=== PATIENT | male | born 1940 | race Caucasian/White ===

== ENCOUNTER 2017-08-07 10:59 | Emergency (ER) | payer MEDICARE, OTHER, SELFPAY ==
[2017-08-07 11:00] VITALS: BP 128/68; PULSE 95; RESP 20; TEMP 36.8; O2SAT 96; BMI 24.4
[2017-08-07 11:46] LABS: UTC Influenza A Antigen Negative (Negative); UTC Influenza B Antigen Negative (Negative); UTC Strep Screen (Rapid) Negative (Negative)
--- NOTE | 2017-08-07 12:25 | HMH.EDUTC ---
[facility] [place]ression: Upper respiratory virus Disposition: Home, Self-Care Condition on Discharge: Good Instructions: DI for Viral Upper Respiratory Infection -- Adult Additional Instructions: Pt did not stay for discharge instructions Referrals: Bello Lewis [Primary Care Provider] - (for persisting, new or worsening symptoms.) Time of Disposition: 12:30 Medical Decision Making - Jose Inquiry Pt receiving controlled substance: No Vital Signs: 08/07/17 11:00 Temperature 98.3 F Temperature Source Oral Pulse Rate [Left Radial] 95 H Respiratory Rate 20 Blood Pressure [Right Arm] 128/68 Blood Pressure Mean [Right Arm] 88 Blood Pressure Source [Right Arm] Automatic Cuff Blood Pressure Position [Right Arm] Supine 02 Sat by Pulse Oximetry 96 Oxygen Delivery Method Room Air - Lab Data Lab results reviewed: Yes: I reviewed the patient's lab results. Lab Results 08/07/17 11:31: Influenza Type A Ag Negative, Influenza Type B Ag Negative, Strep Scn Rapid Clinic Negative Orders (Tests/Meds): ORDERS Category Date Time Status Strep Screen Confirmation Stat Micro 08/07/17 11:31 Received - Reevaluation(s) Time: 12:25 Reevaluation #1: Discussed dx and POC. Pt immediately became more agitated. Screaming and demanding penicillin injection and penicillin tablets!! . Attempted to discuss dx and treatment options to help him feel better but refusing to listen to any other options. Oh hell. That won't do anything. You have done nothing but wasted my time. Tried to discuss risks associated w/ unwarranted antibiotics I am 77 years old. I know my body. you are young and know nothing. You sure do have a lot to learn! pt screamed as he walked out of clinic refusing to be treated otherwise for symptoms, refusing to finish discharge, refusing to sign any paperwork. [facility] [place] - General Stated complaint: sinus infection Time Seen by Provider: 08/07/17 12:25 Mode of Arrival: Ambulatory Source of Information: Patient Limitations: No Limitations Description of Symptoms (Recalled from Triage Doc. by RN): sinus pressure, fevers, sore throat HEENT Symptoms (Recalled from RN notes): Yes (sinus pressure, sore throat) Resp Symptoms (Recalled from RN notes): No Skin Symptoms (Recalled from RN notes): No MS Symptoms (Recalled from RN notes): No Functional Status (Recalled from RN notes): na - History of Present Illness Provider Complaint: c/o I have a sinus infection . Rhinorrhea, susan ear pressure and scratchy throat starting last night. No symptoms prior to last night. Denies a hx of allergies. No fever. Hasn't taken or tried anything for symptoms because there is nothing other than a penicillin injection that will help this . PCP in [place] and out of the office for the week. Around a group of others over the weekend w/ cough, sneezing, runny nose and knows that is where he got it from. - Related Data Home Medications Medication Instructions Recorded Confirmed Atenolol [Atenolol 25mg Tab] 25 mg PO DAILY 08/07/17 08/07/17 Atorvastatin Calcium [Lipitor 40mg 40 mg PO DAILY 08/07/17 08/07/17 Tablet] hydroCHLOROthiazide [HCTZ 25mg 25 mg PO DAILY 08/07/17 08/07/17 tab] Allergies Allergy/AdvReac Type Severity Reaction Status Date / Time erythromycin base Allergy Unknown Unverified 05/15/17 15:31 [ERYTHROMYCIN BASE] - Worker's Comp Is this a Worker's Comp case?: No Is this an [facility] Worker's Comp?: No Is this a [facility] Worker's Comp?: No [facility] History I have reviewed the patient's past medical history: Yes Medical History: Reports:: Coronary Artery Disease, Hypertension Denies:: Cancer, Diabetes Mellitus Type 1, Diabetes Mellitus Type 2, Hyperlipidemia, MRSA Other Surgeries: Yes: Angioplasty Amputation: No Fractures: No - Social History Educational Level: Completed High School Alcohol Intake: never - Psychiatric History Expresses thoughts of harming
[2017-08-07 12:31] VITALS: BP 128/62; PULSE 72; RESP 18; TEMP 36.8
--- NOTE | 2017-08-07 12:35 | ED_ITS ---
[facility] [place] Clinical Impression: Upper respiratory virus Disposition: Home, Self-Care Condition on Discharge: Good Instructions: DI for Viral Upper Respiratory Infection -- Adult Additional Instructions: Pt did not stay for discharge instructions Referrals: Bello Lewis [Primary Care Provider] - (for persisting, new or worsening symptoms.) Time of Disposition: 12:30 Medical Decision Making - Jose Inquiry Pt receiving controlled substance: No Vital Signs: 08/07/17 11:00 Temperature 98.3 F Temperature Source Oral Pulse Rate [Left Radial] 95 H Respiratory Rate 20 Blood Pressure [Right Arm] 128/68 Blood Pressure Mean [Right Arm] 88 Blood Pressure Source [Right Arm] Automatic Cuff Blood Pressure Position [Right Arm] Supine 02 Sat by Pulse Oximetry 96 Oxygen Delivery Method Room Air - Lab Data Lab results reviewed: Yes: I reviewed the patient's lab results. Lab Results 08/07/17 11:31: Influenza Type A Ag Negative, Influenza Type B Ag Negative, Strep Scn Rapid Clinic Negative Orders (Tests/Meds): ORDERS Category Date Time Status Strep Screen Confirmation Stat Micro 08/07/17 11:31 Received - Reevaluation(s) Time: 12:25 Reevaluation #1: Discussed dx and POC. Pt immediately became more agitated. Screaming and demanding penicillin injection and penicillin tablets!! . Attempted to discuss dx and treatment options to help him feel better but refusing to listen to any other options. Oh hell. That won't do anything. You have done nothing but wasted my time. Tried to discuss risks associated w/ unwarranted antibiotics I am 77 years old. I know my body. you are young and know nothing. You sure do have a lot to learn! pt screamed as he walked out of clinic refusing to be treated otherwise for symptoms, refusing to finish discharge, refusing to sign any paperwork. [facility] [place] HPI - General Stated complaint: sinus infection Time Seen by Provider: 08/07/17 12:25 Mode of Arrival: Ambulatory Source of Information: Patient Limitations: No Limitations Description of Symptoms (Recalled from Triage Doc. by RN): sinus pressure, fevers, sore throat HEENT Symptoms (Recalled from RN notes): Yes (sinus pressure, sore throat) Resp Symptoms (Recalled from RN notes): No Skin Symptoms (Recalled from RN notes): No MS Symptoms (Recalled from RN notes): No Functional Status (Recalled from RN notes): na - History of Present Illness Provider Complaint: c/o I have a sinus infection . Rhinorrhea, susan ear pressure and scratchy throat starting last night. No symptoms prior to last night. Denies a hx of allergies. No fever. Hasn't taken or tried anything for symptoms because there is nothing other than a penicillin injection that will help this . PCP in [place] and out of the office for the week. Around a group of others over the weekend w/ cough, sneezing, runny nose and knows that is where he got it from. - Related Data Home Medications Medication Instructions Recorded Confirmed Atenolol [Atenolol 25mg Tab] 25 mg PO DAILY 08/07/17 08/07/17 Atorvastatin Calcium [Lipitor 40mg 40 mg PO DAILY 08/07/17 08/07/17 Tablet] hydroCHLOROthiazide [HCTZ 25mg 25 mg PO DAILY 08/07/17 08/07/17 tab] Allergies Allergy/AdvReac Type Severity Reaction Status Date / Time erythromycin base Allergy Unknown Unv
[2017-08-07 12:46] VITALS: BP 128/62; PULSE 72; RESP 18; TEMP 36.8; O2SAT 96
== END 2017-08-07 12:30 | disposition left against medical advice (07) ==
PROVIDERS: Emergency Provider Nurse Practitioner Family; Family Provider Family Medicine; PCP Family Medicine
DX: J06.9 Acute upper respiratory infection, unspecified (principal); I25.10 Atherosclerotic heart disease of native coronary artery without angina pectoris; I10 Essential (primary) hypertension; Z88.1 Allergy status to other antibiotic agents
CPT/HCPCS: G0463; 87804; 87880; 99202

== ENCOUNTER 2020-11-16 16:08 | Emergency (ER) | payer MEDICARE, MEDICAID, SELFPAY ==
[2020-11-16 16:10] VITALS: BP 155/53; PULSE 61; RESP 20; TEMP 36.9; O2SAT 95; BMI 22.8
--- NOTE | 2020-11-16 16:34 | HMH.EDUTC ---
[facility] [place] Clinical Impression: Sinusitis Qualifiers: Sinusitis location: unspecified location Chronicity: unspecified Qualified Code(s): J32.9 - Chronic sinusitis, unspecified Otitis media Qualifiers: Otitis media type: unspecified Laterality: left Qualified Code(s): H66.92 - Otitis media, unspecified, left ear Disposition: Home, Self-Care Condition on Discharge: Good Instructions: Sinusitis, Middle Ear Infection, DI for Sinusitis, Amoxicillin and Clavulanic Acid Additional Instructions: *Monitor Temp, Over the counter Motrin or Tylenol as directed/as needed Tylenol every 4 hours and Motrin every 6 hours (as long as your family doctor has told you that you can take it) for fever or pain. and straight to ER if unable to lower temp less than 101.0 after medication given *Warm salt water gargles may help to soothe the throat *Throat Lozenges *Warm fluids like tea with honey may help to soothe the throat *Sleep elevated *Humidifier/Vaporizer *Take medication as prescribed Follow up with your Family Doctor if no improvement Follow up IMMEDIATELY for new or worsening symptoms or no Noticeable improvement over the next 48-72 hours. 911 for difficulty breathing or swallowing Prescriptions: Amoxicillin/Potassium Clav [Augmentin 875-125 Tablet] 1 tab PO Q12H 10 Days #20 tab Transmission Status: Pending to [id number] Referrals: Lazaro Almanzar DO [Primary Care Provider] - As needed Time of Disposition: 16:53 Medical Decision Making - Jose Inquiry Pt receiving controlled substance: No Jose was queried for this patient: No Vital Signs: 11/16/20 16:10 Temperature 98.4 F Temperature Source Oral Pulse Rate [Right Brachial] 61 Respiratory Rate 20 Blood Pressure [Right Arm] 155/53 H Blood Pressure Mean [Right Arm] 87 Blood Pressure Source [Right Arm] Automatic Cuff Blood Pressure Position [Right Arm] Sitting 02 Sat by Pulse Oximetry 95 Oxygen Delivery Method Room Air Medical Decision Narrative: Patient has taken augmentin in the past without reactions or complications [facility] [place] - General Stated complaint: sINUS INFECTION, sORE THROAT,COUGH, eARS, GLANDS Time Seen by Provider: 11/16/20 16:34 Mode of Arrival: Ambulatory Source of Information: Patient Limitations: No Limitations Description of Symptoms (Recalled from Triage Doc. by RN): PATIENT C/O SORE THROAT, SINUS PRESSURE AND DRAINAGE, SWOLLEN/SORE GLANDS, AND LEFT EAR PAIN HEENT Symptoms (Recalled from RN notes): Yes Resp Symptoms (Recalled from RN notes): No Skin Symptoms (Recalled from RN notes): No MS Symptoms (Recalled from RN notes): No Functional Status (Recalled from RN notes): WNL - History of Present Illness Provider Complaint: Patient state that he has been having pain in his left ear, sinus pain and pressure, swollen glands and sore scratchy throat State that he gets a bad sinus infection about once a year and has been having issues with ear infections State that he has been feeling bad for over a week so he came in to get medication before it got too bad - Related Data Home Medications Medication Instructions Recorded Confirmed Atorvastatin Calcium [Lipitor 40mg 40 mg PO DAILY 08/07/17 11/16/20 Tablet] atenoloL [Atenolol 25mg Tab] 25 mg PO DAILY 08/07/17 11/16/20 lisinopriL [Lisinopril] 10 mg PO DAILY 11/16/20 11/16/20 Previous Rx's Medication Instructions Recorded Amoxicillin/Potassium Clav 1 tab PO Q12H 10 Days #20 tab 11/16/20 [Augmentin 875-125 Tablet] Allergies Allergy/AdvReac Type Severity Reaction Status Date / Time erythromycin base Allergy Unknown Unverified 05/15/17 15:31 [ERYTHROMYCIN BASE] - Worker's Comp Is this a Worker's Comp case?: No H History - Hepatitis A Screen Drug use history?: No High risk sexual behaviors?: No History of sexually transmitted infection?: No Currently employed?: No Childcare worker?: No Do you have indoor plumbing?: Yes Do you have
[2020-11-16 16:58] VITALS: BP 155/53; PULSE 61; RESP 20; TEMP 36.9; O2SAT 95
== END 2020-11-16 17:01 | disposition home or self-care (01) ==
PROVIDERS: Emergency Provider Nurse Practitioner; PCP Family Medicine
DX: H66.92 Otitis media, unspecified, left ear (principal); J32.9 Chronic sinusitis, unspecified
CPT/HCPCS: 99202; G0463

== ENCOUNTER 2021-01-06 18:23 | Emergency (ER) | payer MEDICARE, MEDICAID, SELFPAY ==
--- NOTE | 2021-01-06 18:52 | PC.NURSE ---
Pt came to the window loudly asking how long will it be before he gets his covid test. Informed pt that it might be a while due to the pt number. PT wanted his paper work to be shred and stated he was going to the board [facility] health in the morning due to this. Did ask pt asked and shred his paperwork.
[2021-01-06 19:09] VITALS: BP 0/0; PULSE 0; RESP 0; TEMP -17.7; TEMP 0; O2SAT 0
== END 2021-01-06 19:09 | disposition left against medical advice (07) ==
LOC: UTC 18:32
PROVIDERS: Emergency Provider Nurse Practitioner; PCP Family Medicine
DX: Z53.21 Procedure and treatment not carried out due to patient leaving prior to being seen by health care provider (principal)

== ENCOUNTER → 2021-11-21 08:29 | Outpatient (CLI) | payer MEDICARE, MEDICAID, SELFPAY | PROVIDERS: Visit Provider Ophthalmology | DX: Z01.812 Encounter for preprocedural laboratory examination (principal); Z20.822 Contact with and (suspected) exposure to COVID-19; H02.9 Unspecified disorder of eyelid | CPT/HCPCS: C9803; U0003; U0005 ==

== ENCOUNTER 2023-07-01 16:48 | Emergency (ER) | payer MEDICARE, MEDICAID, SELFPAY ==
[2023-07-01 16:57] VITALS: BP 163/81; PULSE 82; RESP 18; TEMP 37; O2SAT 98; BMI 21.7
--- NOTE | 2023-07-01 17:04 | HMH.EDGENADL ---
Discharge Plan Disposition Patient Disposition: Home, Self-Care Prescriptions Prescriptions: New azithromycin [Zithromax Z-Drew] 250 mg tablet 250 mg PO DAILY 4 Days Qty: 4 0RF Rx Instructions: start on day 2 of therapy amoxicillin-pot clavulanate 875-125 mg tablet 1 tab PO BID Qty: 14 0RF No Action atorvastatin 40 MG tablet 40 mg PO DAILY atenolol 25 MG tablet 25 mg PO DAILY lisinopril 10 MG tablet 10 mg PO DAILY amoxicillin-pot clavulanate 1 EACH tablet 1 tab PO Q12H 10 Days Qty: 20 0RF Referrals Follow up/Referrals: Taty Starr, EMT [Primary Care Provider] - See instructions Activity Restrictions/Add. Instructions Additional Instructions/Restrictions: At this time it was felt you are safe to be discharged home. If new or worsening symptoms please do not hesitate to return the emergency department. Please take antibiotics as prescribed and follow-up with your family doctor within 72 hours. Do not apply topical antibiotic cream, especially Neosporin as this can worsen the irritation of your skin. Clinical Impressions Clinical Impression: Erysipelas, Cat scratch Instructions Patient Instructions: Animal Bites Discharge ED Provider: Darien Barrios General Adult HPI General Chief complaint: Animal Bite Stated complaint: Right Rash from cat scratch Time Seen by Provider: 07/01/23 16:50 Mode of Arrival: Ambulatory Source of Information: Patient Limitations: No Limitations Description of Symptoms (Recalled from ER Triage Doc. by RN): got scratched and bitten by a stray cat History of Present Illness HPI narrative: Patient is a 83-year-old male with no pertinent past medical history presents emergency department for evaluation of a cat scratch. Patient had a cat scratch and bite on his right upper extremity dorsal aspect of his forearm and wrist approximately 4 days ago with progressive erythema causing him to present here for continued evaluation. This has been refractory to [id number] cream at home. Last Tdap up-to-date within the last 5 years. No other complaints at this time. Related Data Home Medications Medication Instructions Recorded Confirmed atenolol 25 mg tablet 25 mg PO DAILY Heart disease 08/07/17 11/16/20 atorvastatin 40 mg tablet 40 mg PO DAILY Cholesterol 08/07/17 11/16/20 lisinopril 10 mg tablet 10 mg PO DAILY Hypertension 11/16/20 11/16/20 Previous Rx's Medication Instructions Recorded amoxicillin 875 mg-potassium 1 tab PO Q12H 10 days #20 tabs 11/16/20 clavulanate 125 mg tablet amoxicillin 875 mg-potassium 1 tab PO BID #14 tabs 07/01/23 clavulanate 125 mg tablet azithromycin 250 mg tablet 250 mg PO DAILY cat scratch 4 days 07/01/23 (Zithromax Z-Drew) #4 tabs Allergies Allergy/AdvReac Type Severity Reaction Status Date / Time erythromycin base Allergy Unknown Verified 07/01/23 17:03 [ERYTHROMYCIN BASE] [facility] Disclaimer: The information contained in this section may have been updated after the patient was seen, as this information can be updated by other users. Social History Smoking Status: Never smoker second hand exposure: No alcohol intake: never current occupational status: other Travel in the last 8 weeks: None ROS Obtained: Yes Systems reviewed as appropriate & no additional complaints except as documented Physical Exam General General appearance: alert and in no apparent distress Head Head exam: atraumatic and normocephalic Eye Eye exam: Present PERRL ENT ENT exam: Present mucous membranes moist Neck Neck exam: Present normal inspection Chest Chest inspection: Present normal inspection and symmetric chest wall rise Respiratory Respiratory exam: Absent respiratory distress Cardiovascular Cardiovascular exam: Present regular rate and normal rhythm Extremities Exam Extremities exam: Present other (Punctate wound over the dorsal aspect of the right wrist that is scabbed over. Broad area of cellulitis over the dorsal aspect of the right forearm. Sensation intact light touch distally right upper extremity, palpable 2+ right radial pulse, no circumferential erythema or tense edema.) Neurological Exam Neurological exam: Present alert Psychiatric Psychiatric exam: Present normal affect Skin Skin exam: Present warm and dry Medical Decision Making Jose Inquiry Pt receiving controlled substance: No Vital Signs: 07/01/23 16:57 Temperature 98.6 F Temperature Source Oral Pulse Rate [Left Radial] 82 Respiratory Rate 18 Blood Pressure [Left Arm] 163/81 H Blood Pressure Mean [Left Arm] 108 02 Sat by Pulse Oximetry 98 Oxygen Delivery Method Room Air Orders (Tests/Meds): ED MEDICATIONS Generic Name Dose Route Start Last Admin Trade Name Freq PRN Reason Stop Dose Admin Azithromycin 500 mg 07/01/23 17:00 Azithromycin 250mg Tablet PO 07/01/23 17:01 ONCE ONE Trimethoprim/Sulfamethoxazole 1 each 07/01/23 17:00 Sulfa/Trimethoprim 1 Tablet PO 07/01/23 17:01 ONCE ONE Medical Decision Narrative: In summary patient is a 83-year-old male with past medical history described above presents emergency department for evaluation of erythema in the setting of cat scratch and cat bite. Patient is hemodynamically stable nontoxic-appearing upon arrival, afebrile. Patient does not have lymphadenitis in his right upper extremity suggestive of true cat scratch disease. However given that patient has been bitten and scratched will be covered empirically with Augmentin and azithromycin. First dose will be administered here. Tdap is up-to-date. Patient is appropriate for discharge at this time we will follow-up with PCP on outpatient basis will be discharged with a course of antibiotics and was given return precautions. Critical Care Critical Care Time Critical Care Time: No
[2023-07-01] MEDS: AZITHROMYCIN 250MG TABLET 500 MG PO (17:17)
[2023-07-01] MEDS: AMOXICILLIN/CLAVULANATE POTASSIUM 875/125MG TABLET 1 EACH PO (17:17)
[2023-07-01 17:39] VITALS: BP 134/74; PULSE 69; RESP 18; TEMP 37.1; O2SAT 96
== END 2023-07-01 17:40 | disposition home or self-care (01) ==
PROVIDERS: Emergency Provider Emergency Medicine
DX: A46 Erysipelas (principal); W55.03XA Scratched by cat, initial encounter; W55.01XA Bitten by cat, initial encounter
CPT/HCPCS: 99283

== ENCOUNTER 2024-04-30 10:17 | Emergency (ER) | payer MEDICARE, MEDICAID, SELFPAY ==
[2024-04-30 10:30] VITALS: BP 134/80; PULSE 94; O2SAT 96
[2024-04-30 10:31] VITALS: BP 147/81; PULSE 98; RESP 18; TEMP 36.6; O2SAT 98; BMI 22.4
--- NOTE | 2024-04-30 11:15 | XR_ITS ---
FINAL REPORT CLINICAL HISTORY: cough, fever FINDINGS: CHEST 2 VIEWS PA AND LATERAL The heart is normal in size. The mediastinum is unremarkable. There is mild right base opacity, may represent atelectasis or pneumonia. There is no pneumothorax. IMPRESSION: Right base atelectasis versus pneumonia. Reviewed, Interpreted and Dictated by Nii Chowdhury III, MD Transcribed by Marlen Stringer Authenticated and [facility]
--- NOTE | 2024-04-30 11:32 | ED_ITS ---
Discharge Plan Disposition Patient Disposition: Home, Self-Care Prescriptions Prescriptions: New azithromycin 250 mg tablet See Rx Instructions .ROUTE .COMPLEX Qty: 6 0RF Rx Instructions: For 250 mg dose pack: take 500 mg today (day 1), then 250 mg for 4 days (days 2-5) amoxicillin-pot clavulanate 875-125 mg tablet 1 tab PO BID 10 Days Qty: 20 0RF No Action azithromycin [Zithromax Z-Drew] 250 mg tablet 250 mg PO DAILY 4 Days Qty: 4 0RF Rx Instructions: start on day 2 of therapy amoxicillin-pot clavulanate 875-125 mg tablet 1 tab PO BID Qty: 14 0RF atorvastatin 40 MG tablet 40 mg PO DAILY atenolol 25 MG tablet 25 mg PO DAILY lisinopril 10 MG tablet 10 mg PO DAILY amoxicillin-pot clavulanate 1 EACH tablet 1 tab PO Q12H 10 Days Qty: 20 0RF Referrals Follow up/Referrals: Lazaro Almanzar DO [Primary Care Provider] - See instructions Activity Restrictions/Add. Instructions Additional Instructions/Restrictions: No evidence of a focal consolidation/pneumonia however with your bronchitis and your respiratory symptoms in the setting of fever and your age and comorbidities we are erring on the side of treating you for a bacterial infection. You recently had Augmentin and azithromycin treating you for a cat scratch and tolerated these medications well. You have a documented erythromycin allergy but did not have any reaction to azithromycin which has been prescribed. Please return with any significant worsening of your symptoms. Clinical Impressions Clinical Impression: Bronchitis Print Language Print Language: Belarusian Discharge ED Provider: Krys Sen General Adult HPI General Chief complaint: Upper Respiratory Infection Stated complaint: cough, sinus infection, chest congestion Time Seen by Provider: 04/30/24 10:55 Mode of Arrival: Ambulatory Source of Information: Patient Limitations: No Limitations Description of Symptoms (Recalled from ER Triage Doc. by RN): pt states he thinks he has walking PNA. pt reports for over a week he has been sick. pt reports sinus congestion, bilateral eye pain, bilateral ear aches and a productive cough with white sputum. pt states he took 2 ASA this am that relieved the pain in his eyes which is now a 0/10. pt reports he needs an antibiotic called in to [facility] History of Present Illness HPI narrative: Patient is an 83-year-old male who presents today with a chief complaint of once you give me my antibiotics I will be better. States for the last week he has had sinus drainage states my nose has been running like a sugar tree. Also states has had a significant cough with some sputum production and fevers at home that been subjective for tactile in nature he has been taking antipyretics with improvement in those symptoms. Patient recently had prescription of Augmentin and azithromycin in the past for cat scratch fever and tolerated both of those medications well despite a documented history of erythro mycin. Related Data Home Medications ?Medication ?Instructions ?Recorded ?Confirmed atenolol 25 mg tablet 25 mg PO DAILY Heart disease 08/07/17 11/16/20 atorvastatin 40 mg tablet 40 mg PO DAILY Cholesterol 08/07/17 11/16/20 lisinopril 10 mg tablet 10 mg PO DAILY Hypertension 11/16/20 11/16/20 Previous Rx's ?Medication ?Instructions ?Recorded amoxicillin 875 mg-potassium 1 tab PO Q12H 10 days #20 tabs 11/16/20 clavulanate 125 mg tablet amoxicillin 875 mg-potassium 1 tab PO BID #14 tabs 07/01/23 clavulanate 125 mg tablet azithromycin 250 mg tablet 250 mg PO DAILY cat scratch 4 days 07/01/23 (Zithromax Z-Drew) #4 tabs amoxicillin 875 mg-potassium 1 tab PO BID 10 days #20 tabs 04/30/24 clavulanate 125 mg tablet azithromycin 250 mg tablet See Rx Instructions PO .COMPLEX #6 04/30/24 tabs Allergies Allergy/AdvReac Type Severity Reaction Status Date / Time erythromycin base Allergy Unknown Hives Verified 04/30/24 10:42 (ERYTHROMYCIN BASE) [facility] Disclaimer: The information contained in this section may have been updated after the patient was seen, as this information can be updated by other users. Social History Smoking Status: Former smoker second hand exposure: No alcohol intake: never current occupational status: other Travel in the last 8 weeks: None ROS Obtained: Yes All systems reviewed & no additional complaints except as documented Physical Exam General General appearance: alert Respiratory Respiratory exam: Present normal lung sounds bilaterally; Absent respiratory distress Cardiovascular Cardiovascular exam: Present regular rate and normal rhythm Neurological Exam Neurological exam: Present alert and oriented X3 Medical Decision Making Medical Records Screening: Per USPSTF and CDC recommendations, given the prevalence of disease in our region, it is our hospital?s policy to screen for HIV and viral Hepatitis for all patients aged 18 and over and those with ongoing risk factors. Jose Inquiry Pt receiving controlled substance: No Vital Signs: 04/30/24 10:30 04/30/24 10:31 Temperature 98 F Temperature Source Oral Pulse Rate 94 H Pulse Rate [Left] 98 H Respiratory Rate 18 Blood Pressure 134/80 Blood Pressure [Right Arm] 147/81 H Blood Pressure Mean [Right Arm] 103 Blood Pressure Source [Right Arm] Automatic Cuff Blood Pressure Position [Right Arm] Sitting 02 Sat by Pulse Oximetry 96 98 Oxygen Delivery Method Room Air Orders (Tests/Meds): ORDERS Category Date Time Status Chest XR 2 view (NOT portable) [XR chest 2V] Stat Exams 04/30/24 11:15 Taken Medical Decision Narrative: 83-year-old with respiratory infectious symptoms and fever at home. Typically this situation I would work the patient up for sepsis and other viral etiologies as the patient could be bacteremic etc. However the patient denied any blood work and states he just wanted antibiotics. I was able to convince him to get a chest x-ray that was a 2 view and I personally interpreted this and I do not see any dense consolidation however with his age and fever and lack of be able to get any additional workup we will err on the side of giving bacterial treatment with Augmentin and azithromycin. Again he had these medications in the past to treat cat scratch without any allergic side effects. Patient was prescribed these medications return precautions emphasized he was very well on appearance and will return with any worsening symptoms. Critical Care Critical Care Time Critical Care Time: No
[2024-04-30 11:35] VITALS: BP 148/79; PULSE 97; RESP 16; TEMP 36.6; O2SAT 99
== END 2024-04-30 11:36 | disposition home or self-care (01) ==
PROVIDERS: Emergency Provider Student in an Organized Health Care Education/Training Program; PCP Family Medicine
DX: J40 Bronchitis, not specified as acute or chronic (principal); R09.81 Nasal congestion; H57.13 Ocular pain, bilateral; H92.03 Otalgia, bilateral; R05.9 Cough, unspecified; R50.9 Fever, unspecified
CPT/HCPCS: 71046; 99283

== ENCOUNTER 2024-10-09 19:18 | Emergency (ER) | payer MEDICARE, MEDICAID, SELFPAY ==
[2024-10-09 19:50] VITALS: BP 158/77; PULSE 79; RESP 16; TEMP 36.6; O2SAT 100; BMI 22.4
--- OUTSIDE RECORDS SUMMARY | 2024-10-09 20:14 | XMS_ITS | Continuity of Care Document ---
Author Organization [facility] Address [address] [place] [address] Care Team Providers Care Manager Revenue Name Role Phone ST AKBAR MYRA Primary Care Provider MIRTA HARDEN Orthopedic Surgeon [phone] TERRI BARILLAS Urologist Assessment Encounter Date Assessment Date Assessment LastModified by Organization Details LastModified Time 09/24/2024 09/24/2024 f/u in february as scheduled [email or web address] Not available 09/24/2024 15:06:13 Plan of Treatment Reminders Order Date Submit Date Provider Last Modified By Organization Details Last Modified Time Details Appointments RECHECK 2024 08:25A M SE CHAVEZ MD Not available Not available Not available MEDICARE WELLNESS VISIT 2024 08:30A M MYRA STAFFORD DO Not available Not available Not available DERMATOLO GY VISIT 2024 10:30A M WENDIE BOWSER DO Not available Not available Not available Lab culture, bacterial 2024 025 [facility], [address] [place] [address], [id number], 09/25/2024 10:18:34 Referral None recorded. Procedures None recorded. Surgeries None recorded. Imaging None recorded. Medication Orders None recorded. Patient TargetsNo targets recorded. Patient Instructions Encounter Date Encounter Id Patient Instructions Last Modified By Organization Details Last Modified Time 09/24/2024 [id number] If any lesions change, or if any other new or symptomatic lesions occur, patient understands to return to the clinic for further evaluation Discussed sun precautions; SPF 30+ [email or web address] Not available 09/24/2024 08:02:42 Reason for Referral None Reported. Problems Name Problem SNOMED Code Status Onset Date Resolution Date Notes Provider Name and Address Organization Details Recorded Time Epiphora 279531632 Active 2015 From Automate d Load;Pro vider: Samantha Valadez;Sta tus: Active Not Available [facility] 7 02:39:05 Bilatera l age-rela pat nuclear cataract s 70564424039 9100 Active 2015 From Automate d Load;Pro vider: Samantha Valadez;Sta tus: Active Not Available [facility] 7 07:09:49 Ptosis of eyelid 02881329 Active 2015 From Automate d Load;Pro vider: Samantha Valadez;Sta tus: Active Not Available [facility] 7 08:22:55 Heart disease 47479581 Active 2018 [place] - 1994 BELLO LEWIS MD [address] [place] [address], [phone] , [facility] 9 10:22:22 Type 2 diabetes mellitus without complica tion 764867389 Active 2018 MYRAROSALES STAFFODR, DO [address] [place] [address], [phone] , [facility] 9 22:06:46 Benign essentia l hyperten ananda 4681824 Active 2018 MYRAROSALES STAFFORD, DO [address] [place] [address], [address] , [facility] 9 22:20:24 Adult health examinat ion Active 2019 DON'T DELETE FROM PROBLEM [place] [address] [place] [address], [phone] , [facility] 0 09:10:04 Left bundle branch block 31128805 Active 2019 MYRAROSALES STAFFORD, DO [address] [place], [address] , [facility] 0 09:12:53 Active or passive immuniza tion Active 2021 [facility] 2 10:41:27 Muscle weakness 26385585 Active 2021 SAMANTHA HYATT II, PT, DPT [address] [place] [address], [phone] , [facility] 2 09:05:28 Cervical spondylo sis 328621199 Active 2021 SAMANTHA HYATT II, PT, DPT [address] [place] [address], [address] , [facility] 2 09:05:28 Spasm 07778592 Active 2021 SAMANTHA HYATT II, PT, DPT [address] [place] [address], [address] [place] [address] , [facility] 2 09:05:29 Pulmonar y embolism 45208895 Active 2022 ERIKA TORRES MD [address] [place] [address], [address] , [facility] 3 14:28:35 Pulmonar y emphysem a 86928136 Active 2022 ERIKA TORRES MD [address] [place] [address], [phone] [place] [address] 3 14:28:37 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 86643437758 9100 Active 2022 ERIKA TORRES MD [address] [place] [address], [address] , [facility] 3 14:28:39 Mitral valve regurgit ation 71963282 Active 2022 ERIKA TORRES MD [address] [place] [address], [address] , [facility] 3 14:28:40 Atherosc lerosis of aorta 23626499 Active Not Available [facility] 3 08:08:23 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 663189765 Active Not Available [facility] 4 08:36:37 Coronary atherosc lerosis 623190452 Active Not Available [facility] 4 08:36:43 Multiple nodules of lung 064066975 Active 2023 CECE DURANT MD [address] [place], [address] , [facility] 4 08:22:16 Allergic rhinitis 94001977 Active 2014 From Automate d Load;Pro vider: Gretel Lewister;S tatus: Active Not Available [facility] 6 05:51:00 Hyperten sive disorder 60788756 Completed 201501/16/2019 From Automate d Load;Pro vider: Bello Lewis;S tatus: Active [facility], [address] [place] [address], [phone] , [facility] 9 22:20:21 Hyperlip idemia 47830751 Active 2015 [facility], [address] [place] [address], [id number] [place] [address] 0 09:11:56 Acute bronchit is 83613531 Completed 201404/02/2017 From Automate d Load;Pro vider: Bello Lewis;S tatus: Active Juayn Adkins [facility] 7 10:54:45 Problem Notes None recorded. Procedures Surgical History Date Name Laterality Status Provider Name and Address Organization Details Recorded Time 09/25/19 25 Destruction Premalignant Lesion(s) completed [facility] 09/24/2024 15:05:40 09/16/19 25 Destruction Premalignant Lesion(s) completed Diana Kate [facility] 09/15/2024 10:41:11 04/29/20 24 Destruction Premalignant Lesion(s) completed [facility] 04/29/2024 09:14:42 03/11/20 24 Destruction Premalignant Lesion(s) completed Olivia Nguyen [facility] 03/11/2024 14:37:43 03/11/20 24 Diffusion Capacity completed Betina Ceja [facility] 03/11/2024 10:59:50 03/11/20 24 Spirometry completed Betina Brenna [facility] 03/11/2024 10:59:31 03/11/20 24 Pulmonary Function Testing completed CECE DURANT MD [address] [place], [address], [facility] 03/11/2024 11:23:39 01/03/20 24 Destruction Premalignant Lesion(s) completed Caryn Alcantara [facility] 01/03/2024 10:24:21 12/27/19 24 Suture/Staple removal completed Riya Samayoa [facility] 12/27/2023 11:25:13 10/16/19 24 Biopsy Skin Lesion; Tangential completed Olivia Nguyen [facility] 10/16/2023 09:48:18 07/25/19 24 Biopsy Skin Lesion; Punch completed Olivia Nguyen [facility] 07/25/2023 10:55:02 01/17/20 23 Diabetic Foot Exam completed MYRA STAFFORD DO [address] [place], [address], [facility] 01/16/2023 08:26:08 01/17/20 23 PAF Exam completed Anson Pritchett [facility] 12/14/2022 09:25:11 11/28/19 23 Biopsy Skin Lesion; Tangential completed Amina Egan [facility] 11/27/2022 08:17:11 11/28/19 23 Destruction Premalignant Lesion(s) completed Amina Egan [facility] 11/27/2022 08:17:31 09/16/19 23 Stress Test - Nuclear Lexiscan completed ALL COLVIN MD [facility] [place], [address], [facility] 09/15/2022 16:32:21 06/12/19 23 Echocardiogram completed AVNI MEDLEY MD [address] [place] [address], [address], [facility] 06/13/2022 08:53:24 06/08/19 23 EKG completed ABNER BRODY, PATIENT FLOW COORDINATOR [address] [place], [address], [facility] 06/08/2022 15:34:33 06/02/19 23 EKG completed Quoc Calderon [facility] 06/02/2022 10:35:46 03/08/20 22 PT Manual Therapy completed SAMANTHA DE DIOST II, PT, DPT [address] [place], [address], [facility] 03/12/2022 19:01:10 03/08/20 22 PT Therapeutic Exercise completed SAMANTHA DE DIOST II, PT, DPT [address] [place], [address], [facility] 03/12/2022 19:00:57 02/23/20 22 PT Manual Therapy completed SAMANTHA DE DIOST II, PT, DPT [address] [place], [address], [facility] 02/22/2022 09:35:39 02/23/20 22 PT Therapeutic Exercise completed SAMANTHA DE DIOST II, PT, DPT [address] [place], [address], [facility] 02/22/2022 09:35:43 02/16/20 22 PT Manual Therapy completed SAMANTHA DE DIOST II, PT, DPT [address] [place], [address], [facility] 02/15/2022 09:07:16 02/16/20 22 PT Therapeutic Exercise completed SAMANTHA DE DIOST II, PT, DPT [address] [place], [address], [facility] 02/15/2022 09:06:53 02/09/20 22 PT Evaluation - Low Complexity completed SAMANTHA DE DIOST II, PT, DPT [address] [place], [address], [facility] 02/15/2022 08:58:35 02/09/20 22 PT Therapeutic Exercise completed SAMANTHA DE DIOST II, PT, DPT [address] [place], [address], [facility] 02/15/2022 08:58:51 07/08/19 19 PT Hot/Cold Pack completed AXEL HIGHTOWERS, PT [address] [place], [address], [facility] 07/08/2018 07:25:13 07/08/19 19 PT Iontophoresis completed AXEL HIGHTOWERS, PT [address] [place], [address], [facility] 07/08/2018 07:25:13 07/08/19 19 PT Manual Therapy completed AXEL HIGHTOWERS, PT [address] [place], [address], [facility] 07/08/2018 07:25:14 07/01/19 19 PT Hot/Cold Pack completed AXEL HIGHTOWERS, PT [address] [place], [address], [facility] 07/01/2018 07:54:53 07/01/19 19 PT Iontophoresis completed AXEL HIGHTOWERS, PT [address] [place], [address], [facility] 07/01/2018 07:55:00 07/01/19 19 PT Manual Therapy completed AXEL HIGHTOWERS, PT [address] [place], [address], [facility] 07/01/2018 07:26:46 06/28/19 19 PT Evaluation - Moderate Complexity completed AXEL HIGHTOWERS, PT [address] [place], [address], [facility] 06/28/2018 08:59:10 06/28/19 19 PT Therapeutic Exercise completed AXEL HOSKINS, PT [address] [place], [address], [facility] 06/28/2018 08:59:17 06/28/19 19 PT Ultrasound completed AXEL HIGHTOWERS, PT [address] [place], [address], [facility] 06/28/2018 09:38:07 12/10/20 18 Visual Field Extended [facility] 05/06/2018 10:43:07 05/06/20 18 Slit Lamp/External Photos completed [facility] 05/06/2018 10:43:13 Imaging Results None recorded. Procedure Notes None recorded. Medical Equipment None Reported. Allergies Allergen ID Allergen Name Allergen Category Reaction Reaction Severity Criticality Documentation Date Start Date Code Code System Note Provider Name and Address Organization Details Recorded Time 472533 erythromy emma medicatio n Not available Not available Not available 04/20/20162014 4053 RxNorm Comme nt: Creat ed By: Cathy stewart Date: 2014 1:04: 48 PM; Not Available [facility] 6 11:42:15 Medications Name Sig Start Date Stop Date Status Note LastModified by Organization Details LastModified Time Prescript ion - Renewal 05/08 completed Not Available Not Available Not Available Prescript ion - Prior Authoriza tion Request 11/26 completed Not Available Not Available Not Available atorvasta tin 40 mg tablet TAKE 1 TABLET BY MOUTH AT BEDTIME 2024 active Not Available Not Available Not Avai lable metformin 500 mg tablet Take 1 tablet by mouth twice daily 2023 active Not Available Not Available Not Avai lable betametha sone valerate 0.1 % topical ointment apply to the ear canals once a day for a week and then continue once or twice a month 10/31 completed Not Available Not Available Not Available carvedilo l 6.25 mg tablet Take 1 tablet twice a day by oral route. 08/17 completed bradycar pia Not Available Not Available Not Available doxycycli ne hyclate 100 mg capsule 1 po bid with food for 10 days, no dairy. No calcium or iron pills. 02/03 completed Not Available Not Available Not Available Toprol XL 25 mg tablet,ex tended release 1 po qd. Take in place of atenolol . 02/10 completed Not Available Not Available Not Available ketoconaz ole 2 % shampoo APPLY TO THE AFFECTED AREA(S), LATHER, LEAVE IN PLACE FOR 5 MINUTES, AND THEN RINSE OFF WITH WATER BY TOPICAL ROUTE DAILY 10/31 completed Not Available Not Available Not Available triamcino lone acetonide 0.5 % topical cream APPLY A THIN LAYER TO THE AFFECTED AREA(S) BY TOPICAL ROUTE 2 TIMES PER DAY 11/27 completed Not Available Not Available Not Available famotidin e 40 mg tablet TAKE 1 TABLET BY MOUTH ONCE DAILY WITH SUPPER 2023 active Not Available Not Available Not Avai lable Medrol (Drew) 4 mg tablets in a dose pack as directed 09/08 completed Not Available Not Available Not Available betametha sone, augmented 0.05 % topical cream Apply a thin layer to the affected areas of rash/itc nisha on the chest/ar ms/shoul ders 2-3 times a week, as needed. 04/29 completed Patient said cream is eating his skin up in layers. Patient stopped using 3 days ago. Not Available Not Available Not Available atenolol 25 mg tablet 1/2 tab daily 06/16 completed Not Available Not Available Not Available clobetaso l 0.05 % topical cream Apply a thin layer to the affected areas of rash/itc nisha on the chest/ar ms/shoul ders twice a day for up to 2 weeks, then twice a week, as needed. 09/02 completed Not Available Not Available Not Available Zyrtec 10 mg tablet Take 1 tablet every day by oral route. active Not Available Not Available No t Available Tamiflu 75 mg capsule One tablet twice a day for 5 days. 06/15 completed Not Available Not Available Not Available aspirin 81 mg tablet,de layed release Take 1 tablet every day by oral route. active Not Available Not Available No t Available tramadol 50 mg tablet Take 1 tablet every 6 hours by oral route. 01/15 completed Complete d Not Available Not Available Not Available triamcino lone acetonide 0.1 % topical cream APPLY A THIN LAYER TO THE AFFECTED AREA(S) BY TOPICAL ROUTE 2 TIMES PER DAY UP TO 2 WEEKS AT A TIME NEEDED FOR ITCHING 09/15 completed Not Available Not Available Not Available Nitroling ual 0.4 mg/SPRAY spray One spray sl prn CP. May repeat q5min X 2. 01/16 completed Instruct ions: Place one pill under the tongue as needed for chest pain, may repeat in 5 minutes if needed.; Frequenc y: prn;Medi cation Descript ion: nitrogly cerin; Dosage:1 ; Route:yeh blingual ; refills: 5; Quantity :25 spray Not Available Not Available Not Available Kenalog 40 mg/mL suspensio n for injection injected 1mL into L DG 06/15 completed Not Available Not Available Not Available oxycodone -acetamin ophen 5 mg-325 mg tablet Take 1 tablet every 6 hours by oral route as needed, for pain related to divertic ulitis. 09/19 completed Not Available Not Available Not Available Tessalon Perles 100 mg capsule Take 2 capsules 3 times a day by oral route as needed. 06/16 completed Not Available Not Available Not Available ferrous sulfate 325 mg (65 mg iron) tablet Take 1 tablet every day by oral route. 10/15 completed Not Available Not Available Not Available lisinopri l 10 mg tablet Take 1 tablet by mouth once daily 08/14 completed holding as of Not Available Not Available Not Available lidocaine 5 % topical patch Apply 1 patch every 12 hours by topical route as needed. 2023 active Not Available Not Available Not Avai lable nitroglyc nubia 0.4 mg sublingua l tablet DISSOLVE ONE TABLET UNDER THE TONGUE EVERY 5 MINUTES NEEDED FOR CHEST PAIN. DO NOT EXCEED A TOTAL OF 3 DOSES IN 15 MINUTES 2023 active Not Available Not Available Not Avai lable omeprazol e 20 mg capsule,d elayed release 01/16 completed Not Available Not Available Not Available monteluka st 10 mg tablet Take 1 tablet by mouth once daily 2023 active Not Available Not Available Not Avai lable hydrochlo rothiazid e 25 mg tablet TAKE ONE TABLET BY MOUTH ONCE DAILY 12/17 completed Not Available Not Available Not Available mupirocin 2 % topical ointment apply to the affect areas inside both nostrils twice daily for 10 days 2024 active Not Available Not Available Not Avai lable prednison e 5 mg tablets in a dose pack 6-day dosepack 5mg. 03/07 completed Not Available Not Available Not Available fluocinon davina 0.05 % topical solution APPLY TO THE AFFECTED AREAS OF SCALP 1-2 TIMES DAILY PRN ITCH 10/31 completed Not Available Not Available Not Available ipratropi um bromide 42 mcg (0.06 %) nasal spray USE 2 SPRAY(S) IN EACH NOSTRIL THREE TIMES DAILY NEEDED 06/08 completed Not Available Not Available Not Available ketoconaz ole 2 % topical cream APPLY TO THE AFFECTED AREA(S) BY TOPICAL ROUTE ONCE DAILY FOR 2 WEEKS PRN FLARES 01/15 completed Complete d. Not Available Not Available Not Available cefdinir 300 mg capsule Take 1 capsule every 12 hours by oral route for 10 days. 09/08 completed Not Available Not Available Not Available fluticaso ne propionat e 50 mcg/actua tion nasal spray,massimo pension 2 sprays in each nostril qAM. 2023 active Not Available Not Available Not Avai lable metformin ER 500 mg tablet,ex tended release 24 hr 1 tab daily x 1 week, then increase to 2 tabs daily. 09/15 completed Not Available Not Available Not Available doxycycli ne hyclate 100 mg tablet Take 1 tablet twice a day by oral route with meal(s) for 5 days. 01/15 completed Complete d Not Available Not Available Not Available naproxen 500 mg tablet TAKE 1 TABLET BY MOUTH TWICE DAILY WITH MEALS 04/19 completed Not Available Not Available Not Available amoxicill in 875 mg-potass ium clavulana te 125 mg tablet Take 1 tablet twice a day by oral route for 10 days. 09/15 completed Not Available Not Available Not Available Allergy Relief (loratadi ne) 10 mg tablet Take 1 tablet by mouth once daily 2023 active Not Available Not Available Not Avai lable Ciprodex 0.3 %-0.1 % ear drops,massimo pension INSTILL 4 DROPS INTO AFFECTED EAR(S) BY OTIC ROUTE 2 TIMES PER DAY FOR 7 DAYS 02/25 completed Not Available Not Available Not Available loratadin e 08/14 completed Not Available Not Available Not Available mometason e 0.1 % topical solution APPLY A FEW DROPS TO THE AFFECTED AREA(S) BY TOPICAL ROUTE ONCE DAILY for 14 days. 02/10 completed Not Available Not Available Not Available omeprazol e 20 mg tablet,de layed release 1 po qd. 02/10 completed Not Available Not Available Not Available Xarelto 10 mg tablet Take 1 tablet by mouth once daily 2024 active Not Available Not Available Not Avai lable Xarelto 03/18 completed Not Available Not Available Not Available Xarelto 20 mg tablet Take 1 tablet by mouth once daily 09/15 completed not taking Not Available Not Available Not Available Biofreeze (menthol) active PRN Not Available Not Available No t Available imdevimab ([id number]) 120 mg/mL intraveno us solution (2 of 2) (EUA) INJECT 600 mg x 1 02/25 completed Administ ered at [facility] Not Available Not Available Not Available casirivim ab ([id number]) 120 mg/mL intraveno us solution (1 of 2) (EUA) INJECT 600 mg x 1 02/25 completed administ ered at [facility] Not Available Not Available Not Available Vitals None Recorded Social History Question Answer Notes LastModified by Organizat ion Details LastModified Time Tobacco Smoking Status Former Smoker quit 1977 [facility] Alberto [facility] 08/17/2020 10:07:39 What Is Your Level Of Caffeine Consumption? Moderate Information not available 09/30/2024 How Much Tobacco Do You Chew? 2-4/day Information not available 03/20/2019 Which Illicit Or Recreational Drugs Have You Used? None Information not available 04/06/2017 What Is The Highest Grade Or Level Of School You Have Completed Or The Highest Degree You Have Received? TG05132-5 [email or web address] Information not available 09/30/2024 When Did You Quit Smoking? 16+yearssinc elastcigaret te [email or web address] Information not available 06/08/2022 Are There Any Guns Present In Your Home? Yes Information not available 11/27/2019 Hard Of Hearing Or Deaf In One Or Both Ears? No Information not available 11/27/2019 Legally Blind In One Or Both Eyes? No Information not available 11/27/2019 Marital Status Informatio n not available 05/17/2016 What Was The Date Of Your Most Recent Tobacco Screening? 01/17/2024 Information not available 01/17/2024 How Many Children Do You Have? 3 [email or web address] Information not available 03/20/2019 What Is Your Relationship Status? Information not available 02/25/2021 Do You Use Your Seat Belt Or Car Seat Routinely? Yes Information not available 03/14/2021 Are There Any Smokers In Your House? Yes Information not available 03/14/2021 How Much Tobacco Do You Smoke? No [email or web address] Information not available 05/09/2019 Has Tobacco Cessation Counseling Been Provided? Yes Information not available 09/06/2022 On What Date Was Tobacco Cessation Counseling Provided? 11/02/2023 Information not available 11/02/2023 How Many Years Have You Smoked Tobacco? 0 Information not available 03/12/2019 Have You Recently Traveled Abroad? No Information not available 02/25/2021 Sex: Male Functional Status Question Answer Note LastModified by Organizat ion Details LastModified Time Do you use any illicit or recreational drugs? No Information not available 02/25/2021 Do you or have you ever used any other forms of tobacco or nicotine? No Information not available 02/03/2021 What is your level of alcohol consumption? Occasional Information not available 05/17/2016 Do you or have you ever used smokeless tobacco? Currently chews tobacco [email or web address] Information not available 08/17/2020 Are you currently employed? No [email or web address] Information not available 09/30/2024 Are you able to care for yourself? Yes Information not available 11/27/2019 What is your occupation? Retired Information not available 05/17/2016 Do you or have you ever used e-cigarettes or vape? Never used electronic cigarettes Information not available 03/12/2019 Mental Status None recorded. Family History Relationship Description Onset Age of this Age Resolved Age Notes LastModified by Organization Details LastModified Time Mother Family history of malignant neoplasm breast Not available 2015 10:12:42 Sister Family history of malignant neoplasm Not available 2015 10:12:53 Paternal Grandmother Cataract [email or web address] Not available 02/2018 11:27:47 Medical History Condition Response Arthritis Y Cancer N Stroke N Blood Thinners Y High Cholesterol Y Liver Disease N Kidney Disease N Heart Conditions Y Heart Attack ([place]) N Diabetes Y Sleep Apnea N Included as Review of Systems N Heart Disease Y Hypertension Y Immunizations Vaccine Type Date Status Note Provider Name and Address Organization Details Recorded Time pneumococcal polysaccharide PPV23 03/30/20 16 completed [facility] 01/17/2024 10:02:29 pneumococcal, unspecified formulation 03/30/20 16 completed Nancy Garcia [facility] 05/08/2024 13:12:31 Influenza, high-dose, trivalent, PF 03/12/20 19 cancelled product out of stock Not Available [facility] 06/14/2019 02:52:57 COVID-19, mRNA, LNP-S, PF, 100 mcg/0.5mL dose or 50 mcg/0.25mL dose 06/30/19 21 completed [facility] 04/03/2022 16:34:10 COVID-19, mRNA, LNP-S, PF, 100 mcg/0.5mL dose or 50 mcg/0.25mL dose 07/30/19 21 completed [facility] 04/03/2022 16:34:11 COVID-19, mRNA, LNP-S, PF, 100 mcg/0.5mL dose or 50 mcg/0.25mL dose 02/03/20 21 completed [place] [facility] 16:34:10 Influenza, high-dose, trivalent, PF 01/17/20 24 completed [facility], [facility] [address] [place], [address], [facility] 01/17/2024 09:53:39 Pneumococcal conjugate PCV20, polysaccharide [id number] conjugate, adjuvant, PF 01/17/20 24 completed [facility], [facility] [address] [place], [address], [facility] 01/17/2024 09:53:39 Influenza, high-dose, trivalent, PF 04/08/20 19 completed [facility] 04/03/2022 16:34:10 pneumococcal polysaccharide PPV23 04/08/20 19 completed [facility] 04/03/2022 16:34:10 Influenza, high-dose, trivalent, PF 04/06/20 17 completed [facility] 04/03/2022 16:34:10 Influenza, high-dose, quadrivalent, PF 02/14/20 22 completed [facility] 04/03/2022 16:34:10 Influenza, high-dose, quadrivalent, PF 02/23/20 20 completed [facility] 04/03/2022 16:34:11 Influenza, high-dose, trivalent, PF 03/30/20 16 [facility] 16:34:11 Pneumococcal conjugate PCV 13 04/06/20 17 completed [facility] 04/03/[facility]22 16:34:11 COVID-19, mRNA, LNP-S, bivalent, PF, 50 mcg/0.5 mL or 25mcg/0.25 mL dose 02/14/20 22 completed [facility] 04/03/2022 16:34:11 Influenza, high-dose, trivalent, PF 04/01/20 18 completed [facility] 04/03/2022 16:34:11 Influenza, high-dose, quadrivalent, PF 03/14/20 completed [facility] 04/03/2022 16:34:11 Past Encounters Encounter ID Performer Location Encounter Start Date Encounter Closed Date Diagnosis/Indication Diagnosis SNOMED-CT Code Diagnosis ICD10 Code Diagnosis Note [id number] WENDIE BOWSER DO [facility] [address] [place] [address] 09/15/2024 09:47:19 09/15/2024 10:45:37 History of malignant basal cell neoplasm of skin 963127051 Z85.828 lower tip of nose ([facility]) Pruritic disorder 765299 002 L29.9 appears resolved 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 I recommende d 7 days. Pt requests to tx for 10 days. I said that is fine. 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, per hxnot improved per ptHe said he used Mupirocin I performed a culture todaypatie nt verbally consentswi ll see what this shows If neg and continues to have issues will send for ENT Health Concerns Section Related Observation LastModified by Organization Detai ls LastModified Time None Recorded Concern Status LastModified by Organization Details LastModified Time None Recorded Payers Encounter Date Sequence Insurance Name Policy Number Policy Griffin Covered Member ID Griffin Member ID Guarantor Name 09/24/2024 1 [employer] (MEDICARE REPLACEMENT/ ADVANTAGE - PPO) [id number] Cheng W Guy [id number] Cheng W Guy Notes Date Note Type Note Provider Name and Address Organization Details Recorded Time 09/24/2024 text/html Established Patient - EVELYN 09/15/2024 Presents for patient has a few place on face and inside nose sores- he says not better (+) h/o BCC Denies any other new or changing lesions. Feels well today. Denies family history of malignant melanoma. WENDIE BOWSER, [facility] [place], [address], [facility] 09/24/2024 18:02:07
--- OUTSIDE RECORDS SUMMARY | 2024-10-09 20:15 | XMS_ITS | Data Portability ---
Author Organization [facility] ELIZABETH Aguila [place] CLOSED Address 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 Name Role Phone MYRA ALMANZAR Primary Care Provider MIRTA HARDEN Orthopedic Surgeon [phone] TERRI BARILLAS Urologist Assessment Encounter Date Assessment Date Assessment LastModified by Organization Details LastModified Time 04/29/2024 04/29/2024 f/u as scheduled in August [email or web address] Not available 04/29/2024 09:14:54 09/15/2024 09/15/2024 f/u as scheduled in August Not available 09/15/2024 07:06:26 09/24/2024 09/24/2024 f/u in february as scheduled [email or web address] Not available 09/24/2024 15:06:13 Plan of Treatment [...] Not available Not available Not available Lab urinalysi s panel, auto 2024 025 [email or web address] [facility], [address] [place], [address], 09/30/2024 11:20:27 culture, bacterial 2024 025 [facility], [address], [place], [address], 09/25/2024 10:18:34 influenza virus A + B and SARS CoV 2, QL, MARTINEZ+probe , respirato ry specimen 2023 024 [facility], [address] [place], [address], 05/08/2024 14:53:33 Referral None recorded. Procedures None recorded. Surgeries None recorded. Imaging None recorded. Medication Orders mupirocin 2 % topical ointment [address] [facility], [address], [address], 09/15/2024 10:43:56 amoxicill in 875 mg-potass ium clavulana te 125 mg tablet 2023 025 [facility], [address], [address], 09/15/2024 10:32:42 Patient TargetsNo targets recorded. Patient Instructions Encounter Date Encounter Id Patient Instructions Last Modified By Organization Details Last Modified Time 04/29/2024 [id number] If any lesions change, or if any other new or symptomatic lesions occur, patient understands to return to the clinic for further evaluation Discussed sun precautions; SPF 30+ [email or web address] Not available 04/23/2024 15:41:25 05/08/2024 [id number] - Take Augmentin as prescribed to treat sinus infection. - Use Tylenol as needed for fever and pain management. - Ensure adequate fluid intake and rest. - If symptoms persist, worsen, or new symptoms develop, seek medical attention. - Consider using a humidifier to alleviate nasal congestion. [email or web address] Not available 05/08/2024 15:14:37 09/15/2024 [id number] If any lesions change, or if any other new or symptomatic lesions occur, patient understands to return to the clinic for further evaluation Discussed sun precautions; SPF 30+ Not available 09/15/2024 07:06:26 09/24/2024 [id number] If any lesions change, or if any other new or symptomatic lesions occur, patient understands to return to the clinic for further evaluation Discussed sun precautions; SPF 30+ [email or web address] Not available 09/24/2024 08:02:42 09/30/2024 [id number] - Take Tylenol 1000 mg three times a day for pain relief as needed. - Apply a warm compress or heating pad to the painful area on your back. - Do stretching exercises gently to help with stiffness and pain. - Make sure to monitor your symptoms; call if the pain gets worse or does not get better. - Keep an eye on any new symptoms or changes, especially if you have trouble urinating or feel sick. [email or web address] Not available 09/30/2024 11:26:01 Reason for Referral None Reported. Results Created Date Observation Date Name Description Value Unit Range Abnormal Flag Note LastModifiedBy Organization Detail LastModifiedTime 05/08/20 24 05/08/2024 influ ketty virus A + B and SARS CoV 2, QL, MARTINEZ+p robe, respi rator y speci men Unknown Analyte Negati ve Not Available [address], [address], 05/08/2024 13:15:53 05/08/20 24 05/08/2024 influ ketty virus A + B and SARS CoV 2, QL, MARTINEZ+p robe, respi rator y speci men Unknown Analyte Negati ve Not Available [facility] [address] [place] [address], [address], 05/08/2024 13:15:53 05/08/20 24 05/08/2024 influ ketty virus A + B and SARS CoV 2, QL, MARTINEZ+p robe, respi rator y speci men Unknown Analyte Negati ve Not Available [facility] [address] [place], [address], 05/08/2024 13:15:53 05/08/20 24 05/08/2024 influ ketty virus A + B and SARS CoV 2, QL, MARTINEZ+p robe, respi rator y speci men Unknown Analyte Valid Not Available [facility] [address] [place], [address], 05/08/2024 13:15:53 09/25/19 25 09/25/2024 CULTU RE, ROUTI NE gram stain Rare Epithe lial Cells. No organi sms seen. Not Available [facility] [address] [place], [address], 09/29/2024 11:04:50 09/25/19 25 09/29/2024 CULTU RE, ROUTI NE culture, routine Normal skin jo ann isolat ed. Not Available [facility] [address] [place], [address], 09/29/2024 11:04:50 10/01/19 25 09/30/2024 urina lysis panel , auto Unknown Analyte Clean Catch Not Available [facility] [address] [place], [address], 09/30/2024 08:39:02 10/01/19 25 09/30/2024 urina lysis panel , auto Unknown Analyte Yellow Not Available [facility] [address] [place], [address], 09/30/2024 08:39:02 10/01/19 25 09/30/2024 urina lysis panel , auto Unknown Analyte Clear Not Available [facility] [address] [place], [address], 09/30/2024 08:39:02 10/01/19 25 09/30/2024 urina lysis panel , auto Unknown Analyte 1.025 Not Available [facility] [address] [place], [address], 09/30/2024 08:39:02 10/01/19 25 09/30/2024 urina lysis panel , auto Unknown Analyte 1.003 - 1.030 Not Available [facility] [address] [place], [address], 09/30/2024 08:39:02 10/01/19 25 09/30/2024 urina lysis panel , auto Unknown Analyte 5.0 Not Available [facility] [address] [place], [address], 09/30/2024 08:39:02 10/01/1909/30/2024 urina lysis panel , auto Unknown Analyte 5.0 - 8.0 Not Available [facility] [address] [place], [address], 09/30/2024 08:39:02 10/01/1909/30/2024 urina lysis panel , auto Unknown Analyte Negati ve Not Available [facility] [address] [place], [address], 09/30/2024 08:39:02 10/01/1909/30/2024 urina lysis panel , auto Unknown Analyte Negati ve Not Available [facility] [address] [place], [address], 09/30/2024 08:39:02 10/01/1909/30/2024 urina lysis panel , auto Unknown Analyte Negati ve Not Available [facility] [address] [place], [address], 09/30/2024 08:39:02 10/01/1909/30/2024 urina lysis panel , auto Unknown Analyte Negati ve Not Available [facility] [address] [place], [address], 09/30/2024 08:39:02 10/01/19 25 09/30/2024 urina lysis panel , auto Unknown Analyte Trace Not Available [facility] [address] [place], [address], 09/30/2024 08:39:02 10/01/19 25 09/30/2024 urina lysis panel , auto Unknown Analyte Negati ve Not Available [facility] [address] [place], [address], 09/30/2024 08:39:02 10/01/19 25 09/30/2024 urina lysis panel , auto Unknown Analyte 250 mg/dL Not Available [facility] [address] [place], [address], 09/30/2024 08:39:02 10/01/19 25 09/30/2024 urina lysis panel , auto Unknown Analyte Normal Not Available [facility] [address] [place], [address], 09/30/2024 08:39:02 10/01/1909/30/2024 urina lysis panel , auto Unknown Analyte Negati ve Not Available [facility] [address] [place], [address], 09/30/2024 08:39:02 10/01/1909/30/2024 urina lysis panel , auto Unknown Analyte Negati ve Not Available [facility] [address] [place], [address], 09/30/2024 08:39:02 10/01/1909/30/2024 urina lysis panel , auto Unknown Analyte Normal Not Available [facility] [address] [place], [address], 09/30/2024 08:39:02 10/01/19 25 09/30/2024 urina lysis panel , auto Unknown Analyte Normal Not Available [facility] [address] [place], [address], 09/30/2024 08:39:02 10/01/19 25 09/30/2024 urina lysis panel , auto Unknown Analyte Negati ve Not Available [facility] [address] [place] [address], [address], 09/30/2024 08:39:02 10/01/19 25 09/30/2024 urina lysis panel , auto Unknown Analyte Negati ve Not Available [facility] [address] [place] [address], [address], 09/30/2024 08:39:02 10/01/19 25 09/30/2024 urina lysis panel , auto Unknown Analyte Negati ve Not Available [facility] [address] [place] [address], [address], 09/30/2024 08:39:02 10/01/19 25 09/30/2024 urina lysis panel , auto Unknown Analyte Negati ve Not Available [facility] [address] [place] [address], [address], 09/30/2024 08:39:02 04/30/20 24 04/30/2024 XR, chest , 2 view No observ ation record ed. [email or web address] [facility] [address], [place], [address], 05/01/2024 07:38:18 Result Notes None recorded. Problems Name Problem SNOMED Code Status Onset Date Resolution Date Notes Provider Name and Address Organization Details Recorded Time Epiphora 415871211 Active 2015 From Automate [employer];Pro vider: Samantha Valadez;Deloris tus: Active Not Available [facility] 7 02:39:05 Bilatera l age-rela pat nuclear cataract s 53805174079 9100 Active 2015 From Automate d Load;Pro vider: Samantha Valadez;Sta tus: Active Not Available [facility] 7 07:09:49 Ptosis of eyelid 70590647 Active 2015 From Automate d Load;Pro vider: Samantha Valadez;Sta tus: Active Not Available [facility] 7 08:22:55 Heart disease 13076422 Active 2018 MS - 1995 BELLO LEWIS MD [address] [place] [address], [address] , [facility] 9 10:22:22 Type 2 diabetes mellitus without complica tion 639047387 Active 2018 MYRAESTER STAFFORD, [address], [address] [place] [address] 9 22:06:46 Benign essentia l hyperten ananda 4446901 Active 2018 MYRAESTER REDMAN CLAIR, [address], [address] [place] [address] 9 22:20:24 Adult health examinat ion Active 2019 DON'T DELETE FROM PROBLEM LIST [facility], [address], [address] [place] [address] 0 09:10:04 Left bundle branch block 48788409 Active [address], [address] [place] [address] , [facility] 0 09:12:53 Active or passive immuniza tion Active 2021 [facility] 2 10:41:27 Muscle weakness 62028734 Active 2021 SAMANTHA HYATT II, PT, DPT [address] [place] [address], [address] , [facility] 2 09:05:28 Cervical spondylo sis 807929081 Active 2021 SAMANTHA HYATT II, PT, DPT [address] [place] [address], [address] , [facility] 2 09:05:28 Spasm 16013698 Active 2021 SAMANTHA HYATT II, PT, DPT [address] [place] [address], [address] , [facility] 2 09:05:29 Pulmonar y embolism 72998939 Active 2022 ERIKA TORRES MD [address] [place] [address], [address] , [facility] 3 14:28:35 Pulmonar y emphysem a 29608425 Active 2022 ERIKA TORRES MD [address] [place] [address], [address] , [facility] 3 14:28:37 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 64999490128 9100 Active 2022 ERIKA TORRES MD [address] [place] [address], [address] , [facility] 3 14:28:39 Mitral valve regurgit ation 15488848 Active 2022 ERIKA TORRES MD [address] [place] [address], [address] , [facility] 3 14:28:40 Atherosc lerosis of aorta 32057978 Active Not Available [employer] [facility] 3 08:08:23 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 977021849 Active Not Available [facility] [facility] 4 08:36:37 Coronary atherosc lerosis 623722490 Active Not Available [facility] [facility] 4 08:36:43 Multiple nodules of lung 457817738 Active 2023 KRISTINA DURANT MD [address] [place] [address], [address] , [facility] 4 08:22:16 Allergic rhinitis 64666674 Active 2014 From Automate d Load;Pro vider: Debbie Monsalve;S tatus: Active Not Available [facility] 6 05:51:00 Hyperten sive disorder 58356015 Completed 201501/16/2019 From Automate d Load;Pro vider: Debbie, Monsalve;S tatus: Active [facility], DO [address] [place], [address] , [facility] 9 22:20:21 Hyperlip idemia 92872557 Active 2015 [facility], DO [address] [place], [address] , [facility] 0 09:11:56 Acute bronchit is 86175798 Completed 201404/02/2017 From Automate d Load;Pro vider: Bello Lewis;S tatus: Active Juany Adkins [facility] 7 10:54:45 Problem Notes Documentation Provider Name and Address Organization Details Recorded Time 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 ? [address], [facility] [address]VIYELFPC, Wayne W (Legal name: Cheng Guy) (id #[id number], : 1940) [facility] [address] [place] [address] Date: 4RE: Cheng Guy, : 1940, PT ID #[id number] [facility] DO, I would like to thank you for referring Cheng Guy to our practice for consultation and evaluation. I have enclosed a copy of the office evaluation for your records. Sincerely, Electronically Signed by: Bradly BAKER Reason/Date Rash/Skin Lesion F/U 04/29/2024 - 09:00AM - [facility] History of Present IllnessEstablished Patient Presents for rash f/u. arms and chest. patient states he is not using anything on the rash. Patient has d/c the betamethasone as he states it was burning. Denies any other new or changing lesions. Feels well today. Denies family history of malignant melanoma.Review of SystemsROS as noted in the HPIPhysical ExamEXPOSED AREAS Areas examined today and unremarkable for significant pathology, except as listed:General appearance, mood,hair, head/face/ears, eyelids/conjunctive, lips, neck, right and left upper extremities and digits. EXCEPTIONS:1. h/o BCC on lower tip of nose - no recurrence2. clear on face, chest (I did not see any rash on chest today) backscattered pink patches and ecchymoses on the arms3. red keratotic macules on lower helix X1, right gnosticism [id number] DocumentationDestruction Premalignant Lesion(s):Destruction Premalignant Lesions: Following detailed verbal informed consent, 2 actinic keratosis was/were identified on the PE. Each were treated with liquid nitrogen cryotherapy.Assessment/Planf/u as scheduled in August 26. 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 Pruritic disorder-chronicThis has resolved off Lisinopril, and pt is now back on Lisinopril the last 1-2 months and rash has returned. Most likely this is related, given the history.I will send a note over to Myra Almanzar regarding this issue and see if he can change this medication to something else and or have him stop medication again, to see if resolves..L29.9: Pruritus, unspecified 3. Senile purpura-Benign ReassuranceDiscussed dxPhoto taken 10/16/23 for comparisonPatient is on Eliquis - normal amount of ecchymoses for pt on UbpsrttH87.2: Other nonthrombocytopenic purpura 4. Actinic keratosis-Education then treated with LN; lower helix X1, right gnosticism X1pt tolerated welladvised pt what to expect with kevwllubM42.0: Actinic keratosis DiscussionDiscussion NotesIf any lesions change, or if any other new or symptomatic lesions occur, patient understands to return to the clinic for further evaluation Discussed sun precautions; SPF 30+ Return to Office to see MYRA STAFFORD, DO for RECHECK at [facility] on or around 07/19/2024 KRISTINA DURANT MD for RECHECK at PULMONARY on 09/09/2024 at 08:00 AM WENDIE BOSWER DO for DERMATOLOGY VISIT at [facility] on 09/15/2024 at 10:15 AM WENDIE BOWSER DO for DERMATOLOGY VISIT at [facility] on 09/15/2024 at 10:15 AM MYRA STAFFORD DO [address] [place], [address], [facility] 05/01/2024 12:54:27 Procedures Surgical History Date Name Laterality Status Provider Name and Address Organization Details Recorded Time 09/25/19 25 Destruction Premalignant Lesion(s) completed Caryn [facility] 09/24/2024 15:05:40 09/16/19 25 Destruction Premalignant Lesion(s) completed Diana Kate [facility] 09/15/2024 10:41:11 04/29/20 24 Destruction Premalignant Lesion(s) completed Caryn [facility] 04/29/2024 09:14:42 03/11/20 24 Destruction Premalignant Lesion(s) completed Olivia Nguyen [facility] 03/11/2024 14:37:43 03/11/20 24 Diffusion Capacity completed Betina Ceja [facility] 03/11/2024 10:59:50 03/11/20 24 Spirometry completed Betina Ceja [facility] 03/11/2024 10:59:31 03/11/20 24 Pulmonary Function Testing completed KRISTINA DURANT MD [address] [place], [address], [facility] 03/11/2024 11:23:39 01/03/20 24 Destruction Premalignant Lesion(s) completed Caryn [facility] 01/03/2024 10:24:21 12/27/19 24 Suture/Staple removal completed Riya Samayoa [facility] 12/27/2023 11:25:13 10/16/19 24 Biopsy Skin Lesion; Tangential completed Olivia Nguyen [facility] 10/16/2023 09:48:18 07/25/19 24 Biopsy Skin Lesion; Punch completed Olivia Nguyen [facility] 07/25/2023 10:55:02 01/17/20 23 Diabetic Foot Exam completed MYRA STAFFORD DO [address] [place], [address], [facility] 01/16/2023 08:26:08 01/17/20 23 PAF Exam completed Anson Pritchett [facility] 12/14/2022 09:25:11 11/28/19 23 Biopsy Skin Lesion; Tangential completed Amina Egan [facility] 11/27/2022 08:17:11 11/28/19 23 Destruction Premalignant Lesion(s) completed Amina Egan [facility] 11/27/2022 08:17:31 09/16/19 23 Stress Test - Nuclear Lexiscan completed ALL COLVIN MD [address] [place], [address], [facility] 09/15/2022 16:32:21 06/12/19 23 Echocardiogram completed AVNI MEDLEY MD [address] [place], [address], [facility] 06/13/2022 08:53:24 06/08/19 23 EKG completed ABNER BRODY APRN [address] [place], [address], [facility] 06/08/2022 15:34:33 06/02/19 23 EKG completed Quoc Calderon [facility] 06/02/2022 10:35:46 03/08/20 22 PT Manual Therapy completed SAMANTHA HYATT II, PT, DPT [address] [place], [address], [facility] 03/12/2022 19:01:10 03/08/20 22 PT Therapeutic Exercise completed SAMANTHA HYATT II, PT, DPT [address] [place], [address], [facility] 03/12/2022 19:00:57 02/23/20 22 PT Manual Therapy completed SAMANTHA HYATT II, PT, DPT [address] [place], [address], [facility] 02/22/2022 09:35:39 02/23/20 22 PT Therapeutic Exercise completed SAMANTHA HYATT II, PT, DPT [address] [place], [address], [facility] 02/22/2022 09:35:43 02/16/20 22 PT Manual Therapy completed SAMANTHA HYATT II, PT, DPT [address] [place], [address], [facility] 02/15/2022 09:07:16 02/16/20 22 PT Therapeutic Exercise completed SAMANTHA HYATT II, PT, DPT [address] [place], [address], [facility] 02/15/2022 09:06:53 02/09/20 22 PT Evaluation - Low Complexity completed SAMANTHA HYATT II, PT, DPT [address] [place], [address], [facility] 02/15/2022 08:58:35 02/09/20 22 PT Therapeutic Exercise completed SAMANTHA HYATT II, PT, DPT [address] [place], [address], [facility] 02/15/2022 08:58:51 07/08/19 19 PT Hot/Cold Pack completed AXEL HOSKINS, PT [address] [place], [address], [facility] 07/08/2018 07:25:13 07/08/19 19 PT Iontophoresis completed AXEL HOSKINS, PT [address] [place], [address], [facility] 07/08/2018 07:25:13 07/08/19 19 PT Manual Therapy completed AXEL HOSKINS, PT [address] [place], [address], [facility] 07/08/2018 07:25:14 07/01/19 19 PT Hot/Cold Pack completed AXEL HOSKINS, PT [address] [place], [address], [facility] 07/01/2018 07:54:53 07/01/19 19 PT Iontophoresis completed AXELPEACE HOSKINS, PT [address] [place], [address], [facility] 07/01/2018 07:55:00 07/01/19 19 PT Manual Therapy completed AXEL HOSKINS, PT [address] [place], [address], [facility] 07/01/2018 07:26:46 06/28/19 19 PT Evaluation - Moderate Complexity completed AXEL HOSKINS, PT [address] [place], [address], [facility] 06/28/2018 08:59:10 06/28/19 19 PT Therapeutic Exercise completed AXEL HOSKINS, PT [address] [place], [address], [facility] 06/28/2018 08:59:17 06/28/19 19 PT Ultrasound completed AXEL HOSKINS, PT [address] [place], [address], [facility] 06/28/2018 09:38:07 05/06/20 18 Visual Field Extended completed Riya [facility] 05/06/2018 10:43:07 05/06/20 18 Slit Lamp/External Photos completed Riya [facility] 05/06/2018 10:43:13 Imaging Results Imaging Date Name Status LastModified by Organiz ation Details LastModified Time 04/30/2024 XR, chest, 2 view completed [email or web address] [place] [address], [place], [address], 05/01/2024 07:38:18 Procedure Notes None recorded. Medical Equipment None Reported. Allergies Allergen ID Allergen Name Allergen Category Reaction Reaction Severity Criticality Documentation Date Start Date Code Code System Note Provider Name and Address Organization Details Recorded Time 707269 erythromy emma medicatio n Not available Not available Not available 04/20/20162014 4053 RxNorm Comme nt: Crejailyn ed By: Cathy stewart Date: 2014 1:04: 48 PM; Not Available [facility] 6 11:42:15 Medications Name Sig Start Date [...] Available Not Available No t Available imdevimab ([id number]) 120 mg/mL intraveno us solution (2 of 2) (EUA) INJECT 600 mg x 1 02/25 completed Administ ered at [facility] Not Available Not Available Not Available casirivim ab ([id number]) 120 mg/mL intraveno us solution (1 of 2) (EUA) INJECT 600 mg x 1 02/25 completed administ ered at [facility] Not Available Not Available Not Available Vitals Date Recorded Body height Body mass index (BMI) Body weight Body temperature Heart rate Oxygen saturation Oxygen saturation in Arterial blood by Pulse oximetry Respiratory rate Systolic blood pressure Diastolic blood pressure Provider Name and Address Organization Details Last Updated DateTime 4 182.88 cm 22 kg/m2 83644.9 6 g 100 [degF] 73 /min 95 % 95 % 18 /min 111 mm[Hg] 73 mm[Hg] [facility] 4 13:12:21 Date Recorded Body height Body mass index (BMI) Body weight Body temperature Heart rate Oxygen saturation Oxygen saturation in Arterial blood by Pulse oximetry Respiratory rate Systolic blood pressure Diastolic blood pressure Provider Name and Address Organization Details Last Updated DateTime 5 182.88 cm 22.3 kg/m2 24474.2 5 g 98.8 [degF] 93 /min 98 % 98 % 18 /min 148 mm[Hg] 78 mm[Hg] Nancy [facility] 5 10:47:28 Social History Question Answer Notes LastModified by Organizat ion Details LastModified Time Tobacco Smoking Status Former Smoker quit 1977 Janeth Henderson [facility] 08/17/2020 10:07:39 What Is Your Level Of Caffeine Consumption? Moderate [email or web address] Information not available 09/30/2024 How Much Tobacco Do You Chew? 2-4/day [email or web address] Information not available 03/20/2019 Which Illicit Or Recreational Drugs Have You Used? None Information not available 04/06/2017 What Is The Highest Grade Or Level Of School You Have Completed Or The Highest Degree You Have Received? [id number] [email or web address] Information not available 09/30/2024 When Did You [...] How Many Children Do You Have? 3 [email or web address] Information not available 03/20/2019 What Is Your Relationship Status? Information not available 02/25/2021 Do You Use Your Seat Belt Or Car Seat Routinely? Yes Information not available 03/14/2021 Are There Any Smokers In Your House? Yes Information not available 03/14/2021 How Much Tobacco Do You Smoke? No [email or web address] Information not available 05/09/2019 Has Tobacco Cessation Counseling Been Provided? Yes [email or web address] Information not available 09/06/2022 On What Date [...] ever used smokeless tobacco? Currently chews tobacco [email or web address] Information not available 08/17/2020 Are you currently employed? No Information not available 09/30/2024 Are you able [...] Not available 2015 10:12:53 Paternal Grandmother Cataract [email or web address] Not available 02/2018 11:27:47 Medical History Condition Response Diabetes Y Arthritis Y Heart Conditions Y Cancer N Stroke N Blood Thinners Y Sleep Apnea N High Cholesterol Y Liver Disease N Heart Attack (MS) N Heart Disease Y Included as Review of Systems N Hypertension Y Kidney Disease N Immunizations Vaccine Type Date Status Note Provider Name and Address Organization Details Recorded Time pneumococcal polysaccharide PPV23 03/30/20 16 completed Susan Mullins [facility] 01/17/2024 10:02:29 pneumococcal, unspecified formulation 03/30/20 16 completed Nancy Garcia [facility] 05/08/2024 13:12:31 Influenza, high-dose, trivalent, PF 03/12/20 19 cancelled product out of stock Not Available [facility] 06/14/2019 02:52:57 COVID-19, mRNA, LNP-S, PF, 100 mcg/0.5mL dose or 50 mcg/0.25mL dose 06/30/19 21 [facility] 16:34:10 COVID-19, mRNA, LNP-S, PF, 100 mcg/0.5mL dose or 50 mcg/0.25mL dose 07/30/19 21 completed [place] [facility] 16:34:11 COVID-19, mRNA, LNP-S, PF, 100 mcg/0.5mL dose or 50 mcg/0.25mL dose 02/03/20 21 completed [place] Susanna [facility] 04/03/2022 16:34:10 Influenza, high-dose, trivalent, PF 01/17/[address], [address], [facility] 01/17/2024 09:53:39 Pneumococcal conjugate PCV20, polysaccharide [id number] conjugate, adjuvant, PF 01/17/[address], [address], [facility] 01/17/2024 09:53:39 Influenza, high-dose, trivalent, PF 04/08/20 19 completed [place] Susanna [facility] 04/03/2022 16:34:10 pneumococcal polysaccharide PPV23 04/08/20 19 completed [place] Susanna [facility] 04/03/2022 16:34:10 Influenza, high-dose, trivalent, PF 04/06/20 17 completed [place] Susanna [facility] 04/03/2022 16:34:10 Influenza, high-dose, quadrivalent, PF 02/14/20 22 completed [place] [facility] 16:34:10 Influenza, high-dose, quadrivalent, PF 02/23/20 20 completed [place] [facility] 04/[facility]22 16:34:11 Influenza, high-dose,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
--- OUTSIDE RECORDS SUMMARY | 2024-10-09 20:15 | XMS_ITS | Continuity of Care Document ---
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 Name Role Phone ST AKBAR MYRA Primary Care Provider MIRTA HARDEN Orthopedic Surgeon TERRI BARILLAS Urologist Assessment Encounter Date Assessment Date Assessment LastModified by Organization Details LastModified Time 09/15/2024 09/15/2024 f/u as scheduled in [email or web address] Not available 09/15/2024 07:06:26 Plan of Treatment Reminders Order Date Submit Date Provider Last Modified By Organization Details Last Modified Time Details Appointments RECHECK 2024 08:25A M SE CHAVEZ MD Not available Not available Not available MEDICARE WELLNESS VISIT 2024 08:30A M MYRA STAFFORD DO Not available Not available Not available DERMATOLO GY VISIT 2024 10:30A M WENDIE BOWSER DO Not available Not available Not available Lab None recorded. Referral None recorded. Procedures None recorded. Surgeries None recorded. Imaging None recorded. Medication Orders mupirocin 2 % topical ointment 2024 025 [email or web address] [facility], [address], [place], [address], 09/15/2024 10:43:56 Patient TargetsNo targets recorded. Patient Instructions Encounter Date Encounter Id Patient Instructions Last Modified By Organization Details Last Modified Time 09/15/2024 [id number] If any lesions change, or if any other new or symptomatic lesions occur, patient understands to return to the clinic for further evaluation Discussed sun precautions; SPF 30+ [email or web address] Not available 09/15/2024 07:06:26 Reason for Referral None Reported. 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 43081328946 9100 Active 2015 From Autom[employer] Load;Pro vider: Samantha Valadez;Sta tus: Active Not Available [facility] 7 07:09:49 Ptosis of eyelid 90826284 Active 2015 From Automate d Load;Pro vider: Samantha Valadez;Sta tus: Active Not Available [facility] 7 08:22:55 Heart disease 42737907 Active 2018 [place] - 1994 BELLO LEWIS MD [address] [place] [address], [address] , [facility] 9 10:22:22 Type 2 diabetes mellitus without complica tion 553430908 Active 2018 MYRAROSALES STAFFORD, DO [address] [place] [address], [address] , [facility] 9 22:06:46 Benign essentia l hyperten ananda 1399889 Active 2018 [place] [address] [place] [address], [address] , [facility] 9 22:20:24 Adult health examinat ion Active 2019 DON'T DELETE FROM PROBLEM [place] [address] [place] [address], [address] , [facility] 0 09:10:04 Left bundle branch block 07033867 Active 2019 MYRAROSALES STAFFORD, DO [address] [place], [address] , [facility] 0 09:12:53 Active or passive immuniza tion Active 2021 Susan shukla, [facility] 2 10:41:27 Muscle weakness 87021127 Active 2021 SAMANTHA HYATT II, PT, DPT [address] [place] [address], [address] , [facility] 2 09:05:28 Cervical spondylo sis 284439290 Active 2021 SAMANTHA HYATT II, PT, DPT [address] [place] [address], [address] [place] [address] , [facility] 2 09:05:28 Spasm 45048465 Active 2021 SAMANTHA HYATT II, PT, DPT [address] [place] [address], [address] [place] [address] , [facility] 2 09:05:29 Pulmonar y embolism 16805449 Active 2022 ERIKA TORRES MD [address] [place] [address], [address] [place] [address] , [facility] 3 14:28:35 Pulmonar y emphysem a 92325588 Active 2022 ERIKA TORRES MD [address] [place] [address], [address] [place] [address] , [facility] 3 14:28:37 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 67205306073 9100 Active 2022 ERIKA TORRES MD [address] [place] [address], [address] [place] [address] , [facility] 3 14:28:39 Mitral valve regurgit ation 18070876 Active 2022 ERIKA TORRES MD [address] [place] [address], [address] , [facility] 3 14:28:40 Atherosc lerosis of aorta 14020351 Active Not Available [facility] 3 08:08:23 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 750009639 Active Not Available [facility] 4 08:36:37 Coronary atherosc lerosis 133697462 Active Not Available [employer] [facility] 4 08:36:43 Multiple nodules of lung 914573825 Active 2023 CECE DURANT MD [address] [place], [address] , [facility] 4 08:22:16 Allergic rhinitis 16776360 Active 2014 From Autom[employer] Load;Pro vider: Bello Lewis;S tatus: Active Not Available [facility] 6 05:51:00 Hyperten sive disorder 21877630 Completed 201501/16/2019 From [employer] Load;Pro vider: Bello Lewis;S tatus: Active [facility], [address] [place], [address] , [facility] 9 22:20:21 Hyperlip idemia 35933345 Active 2015 [facility], [address] [place], [address] , [facility] 0 09:11:56 Acute bronchit is 50819061 Completed 201404/02/2017 From [employer] Load;Pro vider: Bello Lewis;S tatus: Active Juany Adkins [facility] 7 10:54:45 Problem Notes None recorded. Procedures Surgical History Date Name Laterality Status Provider Name and Address Organization Details Recorded Time 09/25/19 25 Destruction Premalignant Lesion(s) completed [facility] 09/24/2024 15:05:40 09/16/19 25 Destruction Premalignant Lesion(s) completed Diana Kate [facility] 09/15/2024 10:41:11 04/29/20 24 Destruction Premalignant Lesion(s) completed [facility] 04/29/2024 09:14:42 03/11/20 24 Destruction Premalignant Lesion(s) completed Olivia Nguyen [facility] 03/11/2024 14:37:43 03/11/20 24 [facility]usion Capacity [facility] 10:59:50 03/11/20 24 [facility]etry [facility]/11/2024 10:59:31 03/11/20 24 Pulmonary Function Testing completed CECE DURANT MD [address] [place], [address], [facility] 03/11/2024 11:23:39 01/03/20 24 Destruction Premalignant Lesion(s) completed Caryn Alcantara [facility] 01/03/2024 10:24:21 12/27/19 24 Suture/Staple removal completed Riya Samayoa [facility] 12/27/2023 11:25:13 10/16/19 24 Biopsy Skin Lesion; Tangential [facility]16[facility]2023 09:48:18 07/25/19 24 Biopsy Skin Lesion; Punch [facility] 10:55:02 01/17/20 23 Diabetic Foot Exam completed MYRA STAFFORD DO [address] [place], [address], [facility] 01/16/2023 08:26:08 01/17/20 23 PAF Exam completed Anson Pritchett [facility] 12/14/2022 09:25:11 11/28/19 23 Biopsy Skin Lesion; Tangential completed Amina Egan [facility] 11/27/2022 08:17:11 11/28/19 23 Destruction Premalignant Lesion(s) completed Amina Egan [facility] 11/27/2022 08:17:31 09/16/19 23 Stress Test - Nuclear Lexiscan completed ALL COLVIN MD [address] [place], [address], [facility] 09/15/2022 16:32:21 06/12/19 23 Echocardiogram completed AVNI MEDLEY MD [address] [place], [address], [facility] 06/13/2022 08:53:24 01/12/20 23 EKG completed ABNER BRODY, [employer] WOMAN [address] [place], [address], [facility] 06/08/2022 15:34:33 06/02/19 23 EKG completed Quoc Calderon [facility] 06/02/2022 10:35:46 03/08/20 22 PT Manual Therapy completed SAMANTHA DE DIOST II, PT, DPT [address] [place], [address], [facility] 03/12/2022 19:01:10 03/08/20 22 PT Therapeutic Exercise completed SAMANTHA DE DIOST II, PT, DPT [address] [place], [address], [facility] 03/12/2022 19:00:57 02/23/20 22 PT Manual Therapy completed SAMANTHA DE DIOST II, PT, DPT [address] [place], [address], [facility] 02/22/2022 09:35:39 02/23/20 22 PT Therapeutic Exercise completed SAMANTHA DE DIOST II, PT, DPT [address] [place], [address], [facility] 02/22/2022 09:35:43 02/16/20 22 PT Manual Therapy completed SAMANTHA DE DIOST II, PT, DPT [address] [place], [address], [facility] 02/15/2022 09:07:16 02/16/20 22 PT Therapeutic Exercise completed SAMANTHA DE DIOST II, PT, DPT [address] [place], [address], [facility] 02/15/2022 09:06:53 02/09/20 22 PT Evaluation - Low Complexity completed SAMANTHA DE DIOST II, PT, DPT [address] [place], [address], [facility] 02/15/2022 08:58:35 02/09/20 22 PT Therapeutic Exercise completed SAMANTHA DE DIOST II, PT, DPT [address], [place], [address], [facility] 02/15/2022 08:58:51 07/08/19 19 PT Hot/Cold Pack completed AXEL GAVIN WAITS, PT [address] [place], [address], [facility] 07/08/2018 07:25:13 07/08/19 19 PT Iontophoresis completed AXEL GAVIN WAITS, PT [address] [place], [address], [facility] 07/08/2018 07:25:13 07/08/19 19 PT Manual Therapy completed AXEL HIGHTOWERS, PT [address] [place], [address], [facility] 07/08/2018 07:25:14 07/01/19 19 PT Hot/Cold Pack completed AXEL HIGHTOWERS, PT [address] [place], [address], [facility] 07/01/2018 07:54:53 07/01/19 19 PT Iontophoresis completed AXEL HIGHTOWERS, PT [address] [place], [address], [facility] 07/01/2018 07:55:00 07/01/19 19 PT Manual Therapy completed AXEL HIGHTOWERS, PT [address] [place], [address], [facility] 07/01/2018 07:26:46 06/28/19 19 PT Evaluation - Moderate Complexity completed AXEL HIGHTOWERS, PT [address] [place], [address], [facility] 06/28/2018 08:59:10 06/28/19 19 PT Therapeutic Exercise completed AXEL HIGHTOWERS, PT [address] [place], [address], [facility] 06/28/2018 08:59:17 06/28/19 19 PT Ultrasound completed AXEL HIGHTOWERS, PT [address] [place], [address], [facility] 06/28/2018 09:38:07 05/06/20 18 Visual Field Extended completed Riya López [facility] 05/06/2018 10:43:07 05/06/20 18 Slit Lamp/External Photos completed Riya López [facility] 05/06/2018 10:43:13 Imaging Results None recorded. Procedure Notes None recorded. Medical Equipment None Reported. Allergies Allergen ID Allergen Name Allergen Category Reaction Reaction Severity Criticality Documentation Date Start Date Code Code System Note Provider Name and Address Organization Details Recorded Time 796782 erythromy emma medicatio n Not available Not available Not available 04/20/20162014 4053 RxNorm Comme nt: Creat ed By: Cathy stewart Date: 2014 1:04: 48 PM; Not Available [facility] 6 11:42:15 Medications Name Sig Start Date [...] Available Not Available No t Available imdevimab ([id number] 7) 120 mg/mL intraveno us solution (2 of 2) (EUA) INJECT 600 mg x 1 02/25 completed Administ ered at [facility] Not Available Not Available Not Available casirivim ab ([id number] 3) 120 mg/mL intraveno us solution (1 of 2) (EUA) INJECT 600 mg x 1 02/25 completed administ ered at [facility] Not Available Not Available Not Available Vitals None Recorded Social History Question Answer Notes LastModified by Organizat ion Details LastModified Time Tobacco Smoking Status Former Smoker quit 1977 Janeth Henderson [facility] 08/17/2020 10:07:39 What Is Your Level Of Caffeine Consumption? Moderate [email or web address] Information not available 09/30/2024 How Much Tobacco Do You Chew? 2-4/day [email or web address] Information not available 03/20/2019 Which Illicit Or Recreational Drugs Have You Used? None Information not available 04/06/2017 What Is The Highest Grade Or Level Of School You Have Completed Or The Highest Degree You Have Received? [place]36785-6 [email or web address] Information not available 09/30/2024 When Did You [...] How Many Children Do You Have? 3 [email or web address] Information not available 03/20/2019 What Is Your Relationship Status? Information not available 02/25/2021 Do You Use Your Seat Belt Or Car Seat Routinely? Yes Information not available 03/14/2021 Are There Any Smokers In Your House? Yes Information not available 03/14/2021 How Much Tobacco Do You Smoke? No Information not available 05/09/2019 Has Tobacco Cessation [...] ever used smokeless tobacco? Currently chews tobacco [email or web address] Information not available 08/17/2020 Are you currently employed? No [email or web address] Information not available 09/30/2024 Are you able [...] Not available 2015 10:12:53 Paternal Grandmother Cataract [email or web address] Not available 02/2018 11:27:47 Medical History Condition Response Diabetes Y Arthritis Y Heart Conditions Y Cancer N Stroke N Blood Thinners Y Sleep Apnea N High Cholesterol Y Liver Disease N Included as Review of Systems N Heart Attack ([place]) N Heart Disease Y Hypertension Y Kidney Disease N Immunizations Vaccine Type Date Status Note Provider Name and Address Organization Details Recorded Time pneumococcal polysaccharide PPV23 03/30/20 16 completed [facility] 01/17/2024 10:02:29 pneumococcal, unspecified formulation 03/30/20 16 completed Nancy Garcia [facility] 05/08/2024 13:12:31 Influenza, high-dose, trivalent, PF 03/12/20 19 cancelled product out of stock Not Available [facility] 06/14/2019 02:52:57 COVID-19, mRNA, LNP-S, PF, 100 mcg/0.5mL dose or 50 mcg/0.25mL dose 06/30/19 completed [facility] 04/03/2022 16:34:10 COVID-19, mRNA, LNP-S, PF, 100 mcg/0.5mL dose or 50 mcg/0.25mL dose 07/30/19 21 completed [facility] 04/03/2022 16:34:11 COVID-19, mRNA, LNP-S, PF, 100 mcg/0.5mL dose or 50 mcg/0.25mL dose 02/03/20 21 completed [place] Susanna [facility] 04/03/2022 16:34:10 Influenza, high-dose, trivalent, PF 01/17/20 24 completed [facility], DO [address] [place], [address], [facility] 01/17/2024 09:53:39 Pneumococcal conjugate PCV20, polysaccharide [id number] conjugate, adjuvant, PF 01/17/20 24 completed [facility], DO [address] [place], [address], [facility] 01/17/2024 09:53:39 Influenza, high-dose, trivalent, PF 04/08/20 [facility] 04/03/2022 16:34:10 pneumococcal polysaccharide PPV23 04/08/20 19 completed [place] Susanna [facility] 04/03/2022 16:34:10 Influenza, high-dose, trivalent, PF 04/06/20 17 [facility] 04/03/2022 16:34:10 Influenza, high-dose, quadrivalent, PF 02/14/20 22 completed [place] Susanna [facility] 04/03/2022 16:34:10 Influenza, high-dose, quadrivalent, PF 02/23/20 20 completed [place] Susanna [facility] 04/03/2022 16:34:11 Influenza, high-dose, trivalent, PF 03/30/20 16 [facility] [place] [facility] 16:34:11 Pneumococcal conjugate PCV 13 04/06/20 17 completed [place] Susanna [facility] 04/03/2022 16:34:11 COVID-19, mRNA, LNP-S, bivalent, PF, 50 mcg/0.5 mL or 25mcg/0.25 mL dose 02/14/20 22 completed [place] Susanna [facility] 04/03/2022 16:34:11 Influenza, high-dose, trivalent, PF 04/01/20 18 completed [facility] 04/03/2022 16:34:11 Influenza, high-dose, quadrivalent, PF 03/14/20 completed [facility] 04/03/2022 16:34:11 Past Encounters Encounter ID Performer Location Encounter Start Date Encounter Closed Date Diagnosis/Indication Diagnosis SNOMED-CT Code Diagnosis ICD10 Code Diagnosis Note [id number] WENDIE BOWSER DO [facility] [address] [place] [address] 09/15/2024 09:47:19 09/15/2024 10:45:37 History of malignant basal cell neoplasm of skin 155708104 Z85.828 lower tip of nose ([facility]) Pruritic disorder 552376 002 L29.9 appears resolved 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 I recommende d 7 days. Pt requests to tx for 10 days. I said that is fine. Health Concerns Section Related Observation LastModified by Organization Detai ls LastModified Time None Recorded Concern Status LastModified by Organization Details LastModified Time None Recorded Payers Encounter Date Sequence Insurance Name Policy Number Policy Griffin Covered Member ID Griffin Member ID Guarantor Name 09/15/2024 1 [employer] (MEDICARE REPLACEMENT/ ADVANTAGE - PPO) [id number] Cheng W Guy [id number] Cheng W Guy Notes Date Note Type Note Provider Name and Address Organization Details Recorded Time 09/15/2024 text/html Established Joan ent Presents for [...] history of malignant melanoma. WENDIE BOWSER, [address] [place], [address], [facility] 09/15/2024 13:02:42
--- OUTSIDE RECORDS SUMMARY | 2024-10-09 20:15 | XMS_ITS | Continuity of Care Document ---
Author Organization [facility] Address [address] [place] [address] Care Team Providers Care Nurse Practitioner Per Diem Name Role Phone ANGELMYRA REBOLLAR Primary Care Provider MIRTA HARDEN Orthopedic Surgeon TERRI BARILLAS Urologist Assessment No assessment recorded. Plan of Treatment Reminders Order Date Submit [...] available Lab urinalysi s panel, auto 2024 05 025 [email or web address] [facility], [address] [place] [address], [phone], 09/30/2024 11:20:27 Referral None recorded. Procedures None recorded. Surgeries None recorded. Imaging None recorded. Medication Orders None recorded. Patient TargetsNo targets recorded. Patient Instructions Encounter Date Encounter Id Patient Instructions Last Modified By Organization Details Last Modified Time 09/30/2024 [id number] - Take Tylenol 1000 mg three times [...] Abnormal Flag Note LastModifiedBy Organization Detail LastModifiedTime 10/01/1909/30/2024 urina lysis panel , auto Unknown Analyte Clean Catch Not Available [facility] [address] [place] [address], [phone], 09/30/2024 08:39:02 10/01/19 25 09/30/2024 urina lysis panel , auto Unknown Analyte Yellow Not Available [address], [address], 09/30/2024 08:39:02 10/01/1909/30/2024 urina lysis panel , auto Unknown Analyte Clear Not Available [address], [address], 09/30/2024 08:39:02 10/01/19 25 09/30/2024 urina lysis panel , auto Unknown Analyte 1.025 Not Available [address], [address], 09/30/2024 08:39:02 10/01/19 25 09/30/2024 urina lysis panel , auto Unknown Analyte 1.003 - 1.030 Not Available [address], [address], 09/30/2024 08:39:02 10/01/19 25 09/30/2024 urina lysis panel , auto Unknown Analyte 5.0 Not Available [address], [address], 09/30/2024 08:39:02 10/01/19 25 09/30/2024 urina lysis panel , auto Unknown Analyte 5.0 - 8.0 Not Available [facility] [address] [place], [address], 09/30/2024 08:39:02 10/01/19 25 09/30/2024 urina lysis panel , auto Unknown Analyte Negati ve Not Available [facility] [address] [place], [address], 09/30/2024 08:39:02 10/01/19 25 09/30/2024 urina lysis panel , auto Unknown Analyte Negati ve Not Available [facility] [address] [place], [address], 09/30/2024 08:39:02 10/01/19 25 09/30/2024 urina lysis panel , auto Unknown Analyte Negati ve Not Available [facility] [address] [place], [address], 09/30/2024 08:39:02 10/01/19 25 09/30/2024 urina lysis panel , auto Unknown Analyte Negati ve Not Available [facility] [address] [place], [address], 09/30/2024 08:39:02 10/01/19 25 09/30/2024 urina lysis panel , auto Unknown Analyte Trace Not Available [facility] [address] [place], [address], 09/30/2024 08:39:02 10/01/19 25 09/30/2024 urina lysis panel , auto Unknown Analyte Negati ve Not Available [facility] [address] [place], [address], 09/30/2024 08:39:02 10/01/19 25 09/30/2024 urina lysis panel , auto Unknown Analyte 250 mg/dL Not Available [facility] [address] [place], [address], 09/30/2024 08:39:02 10/01/19 25 09/30/2024 urina lysis panel , auto Unknown Analyte Normal Not Available [facility] [address] [place], [address], 09/30/2024 08:39:02 10/01/19 25 09/30/2024 urina lysis panel , auto Unknown Analyte Negati ve Not Available [facility] [address] [place], [address], 09/30/2024 08:39:02 10/01/19 25 09/30/2024 urina lysis panel , auto Unknown Analyte Negati ve Not Available [facility] [address] [place], [address], 09/30/2024 08:39:02 10/01/19 25 09/30/2024 urina lysis panel , auto Unknown Analyte Normal Not Available [facility] [address] [place], [address], 09/30/2024 08:39:02 10/01/19 25 09/30/2024 urina lysis panel , auto Unknown Analyte Normal Not Available [facility] [address] [place], [address], 09/30/2024 08:39:02 10/01/19 25 09/30/2024 urina lysis panel , auto Unknown Analyte Negati ve Not Available [facility] [address] [place], [address], 09/30/2024 08:39:02 10/01/19 25 09/30/2024 urina lysis panel , auto Unknown Analyte Negati ve Not Available [facility] [address] [place], [address], 09/30/2024 08:39:02 10/01/1909/30/2024 urina lysis panel , auto Unknown Analyte Negati ve Not Available [facility] [address] [place], [address], 09/30/2024 08:39:02 10/01/1909/30/2024 urina lysis panel , auto Unknown Analyte Negati ve Not Available [facility] [address] [place], [address], 09/30/2024 08:39:02 Result Notes None recorded. Problems Name Problem SNOMED Code Status Onset Date Resolution Date Notes Provider Name and Address Organization Details Recorded Time Epiphora 156623547 Active 2015 From Automate d Load;Pro vider: Samantha Valadez;Sta tus: Active Not Available [facility] 7 02:39:05 Bilatera l age-rela pat nuclear cataract s 93380044947 9100 Active 2015 From Automate d Load;Pro vider: Samantha Valadez;Sta tus: Active Not Available [facility] 7 07:09:49 Ptosis of eyelid 87610269 Active 2015 From Automate d Load;Pro vider: Samantha Valadez;Sta tus: Active Not Available [facility] 7 08:22:55 Heart disease 28177744 Active 2018 [place] - Katherin GILL MD [address] [place] [address], [address] , [facility] 9 10:22:22 Type 2 diabetes mellitus without complica tion 377216335 Active 2018 [facility] [address], [address] , [facility] 9 22:06:46 Benign essentia l hyperten ananda 5917915 Active 2018 [facility] [address], [address] , [facility] 9 22:20:24 Adult health examinat ion Active 2019 DON'T DELETE FROM PROBLEM LIST MYRA STAFFORD, DO [address] [place], [address] , [facility] 0 09:10:04 Left bundle branch block 28993514 Active 2019 MYRA STAFFORD, DO [address] [place], [address] , [facility] 0 09:12:53 Active or passive immuniza tion Active 2021 [facility] 2 10:41:27 Muscle weakness 04236300 Active 2021 SAMANTHA HYATT II, PT, DPT [address] [place] [address], [address] , [facility] 2 09:05:28 Cervical spondylo sis 507149029 Active 2021 SAMANTHA HYATT II, PT, DPT [address] [place] [address], [address] , [facility] 2 09:05:28 Spasm 75122223 Active 2021 SAMANTHA HYATT II, PT, DPT [address] [place], [address] , [facility] 2 09:05:29 Pulmonar y embolism 22047150 Active 2022 ERIKA TORRES MD [address] [place] [address] [place], [address] , [facility] 3 14:28:35 Pulmonar y emphysem a 46811821 Active 2022 ERIKA TORRES MD [address] [place] [address] [place], [address] , [facility] 3 14:28:37 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 48861874069 9100 Active 2022 ERIKA TORRES MD [address] [place], [address] , [facility] 3 14:28:39 Mitral valve regurgit ation 58848002 Active 2022 ERIKA TORRES MD [address] [place] [address], [address] , [facility] 3 14:28:40 Atherosc lerosis of aorta 70557528 Active Not Available [facility] 3 08:08:23 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 612981380 Active Not Available [facility] 4 08:36:37 Coronary atherosc lerosis 862779805 Active Not Available [facility] 4 08:36:43 Multiple nodules of lung 478865165 Active 2023 CECE DURANT MD [address] [place] [address], [address] , [facility] 4 08:22:16 Allergic rhinitis 98288290 Active 2014 From Automate d Load;Pro vider: Debbie, Monsalve;S tatus: Active Not Available [facility] 6 05:51:00 Hyperten sive disorder 31643929 Completed 201501/16/2019 From Automate d Load;Pro vider: Debbie, Monsalve;S tatus: Active [facility], [address] [place] [address], [address] , [facility] 9 22:20:21 Hyperlip idemia 84931104 [place] [address] [place] [address] [place] [address], [address] , [facility] 0 09:11:56 Acute bronchit is 35126577 Completed 201404/02/2017 From Automate d Load;Pro vider: Debbie, Monsalve;S tatus: Active Juany Adkins [facility] 7 10:54:45 Problem Notes None recorded. Procedures Surgical History Date Name Laterality Status Provider Name and Address Organization Details Recorded Time 09/25/19 25 Destruction Premalignant Lesion(s) completed [facility] 09/24/2024 15:05:40 09/16/19 25 Destruction Premalignant Lesion(s) completed Diana Kate [facility] 09/15/2024 10:41:11 04/29/20 24 Destruction Premalignant Lesion(s) completed [facility] 04/29/2024 09:14:42 03/11/20 24 Destruction Premalignant Lesion(s) completed Olivia Nguyen [facility] 03/11/2024 14:37:43 03/11/20 24 Diffusion Capacity completed Betina Ceja [facility] 03/11/2024 10:59:50 03/11/20 24 Spirometry completed Betinausama Ceja [facility] 03/11/2024 10:59:31 03/11/20 24 Pulmonary Function Testing completed CECE DURANT MD [address] [place], [address], [facility] 03/11/2024 11:23:39 01/03/20 24 Destruction Premalignant Lesion(s) completed Caryn [facility] 01/03/2024 10:24:21 12/27/19 24 Suture/Staple removal completed Riya Samayoa [facility] 12/27/2023 11:25:13 10/16/19 24 Biopsy Skin Lesion; Tangential completed Olivia Nguyen [facility] 10/16/2023 09:48:18 07/25/19 24 Biopsy Skin Lesion; Punch completed Olivia Nguyen [facility] 07/25/2023 10:55:02 01/17/20 23 Diabetic Foot Exam completed MYRA STAFFORD DO [address] [place], [address], [facility] 01/16/2023 08:26:08 01/17/20 23 PAF Exam completed Anson Pritchett [facility] 12/14/2022 09:25:11 11/28/19 23 Biopsy Skin Lesion; Tangential completed Amina Egan [facility] 11/27/2022 08:17:11 11/28/19 23 Destruction Premalignant Lesion(s) completed Amina Egan [facility] 11/27/2022 08:17:31 09/16/19 23 Stress Test - Nuclear Lexiscan completed ALL COLVIN MD [address] [place], [address], [facility] 09/15/2022 16:32:21 06/12/19 23 Echocardiogram completed AVNI MEDLEY MD [address] [place], [address], [facility] 06/13/2022 08:53:24 06/08/19 23 EKG completed ABNER BRODY APRN [address] [place], [address], [facility] 06/08/2022 15:34:33 06/02/19 23 EKG completed Quoc Calderon [facility] 06/02/2022 10:35:46 03/08/20 22 PT Manual Therapy completed SAMANTHA HYATT II, PT, DPT [address] [place], [address], [facility] 03/12/2022 19:01:10 03/08/20 22 PT Therapeutic Exercise completed SAMANTHA HYATT II, PT, DPT [address] [place], [address], [facility] 03/12/2022 19:00:57 02/23/20 22 PT Manual Therapy completed SAMANTHA HYATT II, PT, DPT [address] [place], [address], [facility] 02/22/2022 09:35:39 02/23/20 22 PT Therapeutic Exercise completed SAMANTHA HYATT II, PT, DPT [address] [place], [address], [facility] 02/22/2022 09:35:43 02/16/20 22 PT Manual Therapy completed SAMANTHA HYATT II, PT, DPT [address] [place], [address], [facility] 02/15/2022 09:07:16 02/16/20 22 PT Therapeutic Exercise completed SAMANTHA HYATT II, PT, DPT [address] [place], [address], [facility] 02/15/2022 09:06:53 02/09/20 22 PT Evaluation - Low Complexity completed SAMANTHA HYATT II, PT, DPT [address] [place], [address], [facility] 02/15/2022 08:58:35 02/09/20 22 PT Therapeutic Exercise completed SAMANTHA HYATT II, PT, DPT [address] [place], [address], [facility] 02/15/2022 08:58:51 07/08/19 19 PT Hot/Cold Pack completed AXEL HOSKINS, PT [address] [place], [address], [facility] 07/08/2018 07:25:13 07/08/19 19 PT Iontophoresis completed AXEL HOSKINS, PT [address] [place], [address], [facility] 07/08/2018 07:25:13 07/08/19 19 PT Manual Therapy completed AXEL HOSKINS, PT [address] [place], [address], [facility] 07/08/2018 07:25:14 07/01/19 19 PT Hot/Cold Pack completed AXEL HOSKINS, PT [address] [place], [address], [facility] 07/01/2018 07:54:53 07/01/19 19 PT Iontophoresis completed AXEL HOSKINS, PT [address] [place], [address], [facility] 07/01/2018 07:55:00 07/01/19 19 PT Manual Therapy completed AXEL HOSKINS, PT [address] [place], [address], [facility] 07/01/2018 07:26:46 06/28/19 19 PT Evaluation - Moderate Complexity completed AXEL IRWINIRA HOSKINS, PT [address] [place], [address], [facility] 06/28/2018 08:59:10 06/28/19 19 PT Therapeutic Exercise completed AXEL IRWINIRA HOSKINS, PT [address] [place], [address], [facility] 06/28/2018 08:59:17 06/28/19 19 PT Ultrasound completed AXEL IRWINIRA HOSKINS, PT [address] [place], [address], [facility] 06/28/2018 09:38:07 05/06/20 18 Visual Field Extended completed [facility] 05/06/2018 10:43:07 05/06/20 18 Slit Lamp/External Photos completed [facility] 05/06/2018 10:43:13 Imaging Results None recorded. Procedure Notes None recorded. Medical Equipment None Reported. Allergies Allergen ID Allergen Name Allergen Category Reaction Reaction Severity Criticality Documentation Date Start Date Code Code System Note Provider Name and Address Organization Details Recorded Time 195192 erythromy emma medicatio n Not available Not [...] Available Not Available No t Available imdevimab ([id number] 7) 120 mg/mL intraveno us solution (2 of 2) (EUA) INJECT 600 mg x 1 02/25 completed Administ ered at [facility] Not Available Not Available Not Available casirivim ab ([id number] 3) 120 mg/mL intraveno us solution (1 of 2) (EUA) INJECT 600 mg x 1 02/25 completed administ nai at [facility] Not Available Not Available Not Available Vitals Date Recorded Body height Body mass index (BMI) Body weight Body temperature Heart rate Oxygen saturation Oxygen saturation in Arterial blood by Pulse oximetry Respiratory rate Systolic blood pressure Diastolic blood pressure Provider Name and Address Organization Details Last Updated DateTime 5 182.88 cm 22.3 kg/m2 11560.2 5 g 98.8 [degF] 93 /min 98 % 98 % 18 /min 148 mm[Hg] 78 mm[Hg] Nancy Garcia [facility] 10:47:28 Social History Question Answer Notes LastModified by Organizat ion Details LastModified Time Tobacco Smoking Status Former Smoker quit 1977 Janeth Henderson [facility] 08/17/2020 10:07:39 What Is Your Level Of Caffeine Consumption? Moderate [email or web address] Information not available 09/30/2024 How Much Tobacco Do You Chew? 2-4/day [email or web address] Information not available 03/20/2019 Which Illicit Or Recreational Drugs Have You Used? None Information not available 04/06/2017 What Is The Highest Grade Or Level Of School You Have Completed Or The Highest Degree You Have Received? [id number] [email or web address] Information not available 09/30/2024 When Did You [...] How Many Children Do You Have? 3 [email or web address] Information not available 03/20/2019 What Is Your Relationship Status? Information not available 02/25/2021 Do You Use Your Seat Belt Or Car Seat Routinely? Yes Information not available 03/14/2021 Are There Any Smokers In Your House? Yes Information not available 03/14/2021 How Much Tobacco Do You Smoke? No [email or web address] Information not available 05/09/2019 Has Tobacco Cessation [...] ever used smokeless tobacco? Currently chews tobacco [email or web address] Information not available 08/17/2020 Are you currently [...] Not available 2015 10:12:53 Paternal Grandmother Cataract [email or web address] Not available 02/2018 11:27:47 Medical History Condition Response Diabetes Y Arthritis Y Heart Conditions Y Cancer N Stroke N Blood Thinners Y Sleep Apnea N High Cholesterol Y Liver Disease N Heart Disease Y Heart Attack ([place]) N Included as Review of Systems N Hypertension Y Kidney Disease N Immunizations Vaccine Type Date Status Note Provider Name and Address Organization Details Recorded Time pneumococcal polysaccharide PPV23 03/30/20 16 completed [facility] 01/17/2024 10:02:29 pneumococcal, unspecified formulation 03/30/20 16 completed Nancy Garcia [facility] 05/08/2024 13:12:31 Influenza, high-dose, trivalent, PF 03/12/20 19 cancelled product out of stock Not Available [facility] 06/14/2019 02:52:57 COVID-19, mRNA, LNP-S, PF, 100 mcg/0.5mL dose or 50 mcg/0.25mL dose 06/30/19 21 completed [facility] 04/03/2022 16:34:10 COVID-19, mRNA, LNP-S, PF, 100 mcg/0.5mL dose or 50 mcg/0.25mL dose 07/30/19 21 completed [facility] 04/03/2022 16:34:11 COVID-19, mRNA, LNP-S, PF, 100 mcg/0.5mL dose or 50 mcg/0.25mL dose 02/03/20 21 completed [facility] 04/03/2022 16:34:10 Influenza, high-dose, trivalent, PF 01/17/20 24 completed [facility] [place], [address], [facility] 01/17/2024 09:53:39 Pneumococcal conjugate PCV20, polysaccharide [id number] conjugate, adjuvant, PF 01/17/20 24 completed [facility], [address] [place], [address], [facility] 01/17/2024 09:53:39 Influenza, high-dose, trivalent, PF 04/08/20 19 completed [facility] 04/03/2022 16:34:10 pneumococcal polysaccharide PPV23 04/08/20 19 completed [facility] 04/03/2022 16:34:10 Influenza, high-dose, trivalent, PF 04/06/20 17 completed [facility] 04/03/2022 16:34:10 Influenza, high-dose, quadrivalent, PF 02/14/20 22 completed [facility] 04/03/2022 16:34:10 Influenza, high-dose, quadrivalent, PF 02/23/20 20 [facility] 04/03/2022 16:34:11 Influenza, high-dose, trivalent, PF 03/30/20 16 completed [facility] 04/03/2022 16:34:11 Pneumococcal conjugate PCV 13 04/06/20 17 [facility] 04/03/2022 16:34:11 COVID-19, mRNA, LNP-S, bivalent, PF, 50 mcg/0.5 mL or 25mcg/0.25 mL dose 02/14/20 22 completed [facility] 04/03/2022 16:34:11 Influenza, high-dose, trivalent, PF 04/01/20 18 [facility] 04/03/2022 16:34:11 Influenza, high-dose, quadrivalent, PF 03/14/20 21 completed [facility] 04/03/2022 16:34:11 Past Encounters Encounter ID Performer Location Encounter Start Date Encounter Closed Date Diagnosis/Indication Diagnosis SNOMED-CT Code Diagnosis ICD10 Code Diagnosis Note [id number] WENDIE BOWSER DO [facility] [address] [place] [address] 09/15/2024 09:47:19 09/15/2024 10:45:37 History of malignant basal cell neoplasm of skin 773827831 Z85.828 lower tip of nose ([facility]) Pruritic disorder 570666 002 L29.9 appears resolved 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 I recommende d 7 days. Pt requests to tx for 10 days. I said that is fine. 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 Patient noticed [...] Member ID Griffin Member ID Guarantor Name 09/30/2024 1 [employer] (MEDICARE REPLACEMENT/ ADVANTAGE - PPO) [id number] Cheng W Guy [id number] Cheng Rik Guy Notes Date Note Type Note Provider Name and Address Organization Details Recorded Time 09/30/2024 text/html - The patient is an [...] rest, he is experiencing 0/10 pain MYRA [facility], DO [address] [place], [address], [facility] 09/30/2024 11:36:28
--- NOTE | 2024-10-09 20:27 | XR_ITS ---
PROCEDURE INFORMATION: Exam: XR Left Hand Exam date and time: 10/09/2024 8:25 PM Age: 84 years old Clinical indication: Injury or trauma; Other: Degloving injury, third digit TECHNIQUE: Imaging protocol: Radiologic exam of the left hand. Views: 3 or more views. COMPARISON: No relevant prior studies available. FINDINGS: Bones/joints: Complex, displaced comminuted fractures of 3rd distal phalanx. No dislocation. Soft tissues: Extensive laceration overlying 3rd distal phalanx. IMPRESSION: Third distal phalangeal fractures.
--- NOTE | 2024-10-09 20:29 | ED_ITS ---
<Statement entered by Viry Argueta DO - 10/10/24 00:47> I was consulted by the BR[facility], and we discussed the complexity of the problems being addressed. I approved the treatment and management plan for this patient's care in the emergency department, thus performing a substantive portion of the medical decision making. Viry Argueta DO Discharge Plan Disposition Patient Disposition: Xfer Other Condition: Good Prescriptions Prescriptions: No Action azithromycin [Zithromax Z-Drew] 250 mg tablet 250 mg PO DAILY 4 Days Qty: 4 0RF Rx Instructions: start on day 2 of therapy amoxicillin-pot clavulanate 875-125 mg tablet 1 tab PO BID Qty: 14 0RF azithromycin 250 mg tablet See Rx Instructions .ROUTE .COMPLEX Qty: 6 0RF Rx Instructions: For 250 mg dose pack: take 500 mg today (day 1), then 250 mg for 4 days (days 2-5) amoxicillin-pot clavulanate 875-125 mg tablet 1 tab PO BID 10 Days Qty: 20 0RF atorvastatin 40 MG tablet 40 mg PO DAILY atenolol 25 MG tablet 25 mg PO DAILY lisinopril 10 MG tablet 10 mg PO DAILY amoxicillin-pot clavulanate 1 EACH tablet 1 tab PO Q12H 10 Days Qty: 20 0RF Referrals Follow up/Referrals: Lazaro Almanzar DO [Primary Care Provider] - See instructions Clinical Impressions Clinical Impression: Degloving injury of left hand Print Language Print Language: Austrian Discharge ED Provider: Viry Argueta General Adult HPI General Chief complaint: Wound/Laceration Stated complaint: AO 10/09/24 1840 laceration left middle finger Time Seen by Provider: 10/09/24 20:21 Mode of Arrival: Ambulatory Source of Information: Patient Description of Symptoms (Recalled from ER Triage Doc. by RN): Pt presents with c/o left middle finger laceration. pt states he cut his finger with a table saw, and needs t-dap History of Present Illness HPI narrative: 84-year-old male presents the emergency department with a left third digit laceration/injury with a table saw , that occurred around 45 minutes prior to arrival. Patient denies any numbness tingling, admits to pain to the area, can move the extremity to command, denies any fever chills chest pain shortness breath nausea vomiting constipation diarrhea no other acute symptomatology, other past medical history consistent with hyperlipidemia, hypertension, he states he is on blood thinners , but he is unsure of which blood thinner, he is a current everyday smoker, denies any alcohol or drug use, triage vitals grossly unremarkable. Of note, patient's tells me he is on Xarelto , unsure of reason. Onset (ago): minute(s) Related Data Home Medications ?Medication ?Instructions ?Recorded ?Confirmed atenolol 25 mg tablet 25 mg PO DAILY Heart disease 08/07/17 11/16/20 atorvastatin 40 mg tablet 40 mg PO DAILY Cholesterol 08/07/17 11/16/20 lisinopril 10 mg tablet 10 mg PO DAILY Hypertension 11/16/20 11/16/20 Previous Rx's ?Medication ?Instructions ?Recorded amoxicillin 875 mg-potassium 1 tab PO Q12H 10 days #20 tabs 11/16/20 clavulanate 125 mg tablet amoxicillin 875 mg-potassium 1 tab PO BID #14 tabs 07/01/23 clavulanate 125 mg tablet azithromycin 250 mg tablet 250 mg PO DAILY cat scratch 4 days 07/01/23 (Zithromax Z-Drew) #4 tabs amoxicillin 875 mg-potassium 1 tab PO BID 10 days #20 tabs 04/30/24 clavulanate 125 mg tablet azithromycin 250 mg tablet See Rx Instructions PO .COMPLEX #6 04/30/24 tabs Allergies Allergy/AdvReac Type Severity Reaction Status Date / Time erythromycin base Allergy Unknown Hives Verified 04/30/24 10:42 (ERYTHROMYCIN BASE) [facility] Disclaimer: The information contained in this section may have been updated after the patient was seen, as this information can be updated by other users. Social History Smoking Status: Never smoker second hand exposure: No alcohol intake: never current occupational status: other Travel in the last 8 weeks?: None Have you lived/traveled outside [place] in past 30 days?: No Contact w/someone who lives/traveled outside [place] past 30 days?: No Exposure to someone with infectious disease in past 14 days?: No Do you have a fever (greater than 100.4 F or 38 C)?: No Have you tested positive for COVID-19?: No Exposed to someone with COVID-19 in past 14 days?: No Do you have a sore throat?: No Do you have a cough?: No Do you have any weakness?: No Do you have any diarrhea?: No Are you experiencing any unusual bleeding?: Yes Do you have any muscle aches/pain?: No Do you have any abdominal pain?: No Are you experiencing loss of taste or smell?: No ROS Obtained: Yes All systems reviewed & no additional complaints except as documented Physical Exam General General appearance: alert and in no apparent distress Head Head exam: atraumatic and normocephalic Eye Eye exam: Present PERRL and EOMI ENT ENT exam: Present mucous membranes moist Neck Neck exam: Present normal inspection Chest Chest inspection: Present normal inspection and symmetric chest wall rise Respiratory Respiratory exam: Present normal lung sounds bilaterally; Absent respiratory distress Cardiovascular Cardiovascular exam: Present regular rate and normal rhythm Abdominal Exam Abdominal exam: Present soft; Absent tenderness Extremities Exam Extremities exam: Present normal inspection and other (Obvious degloving injury/possible open fracture to the left hand third digit distal phalanx, with active bleeding.) Neurological Exam Neurological exam: Present alert and oriented X3 Psychiatric Psychiatric exam: Present normal affect Skin Skin exam: Present warm and dry Medical Decision Making Medical Records Medical records reviewed: Yes I reviewed the patient's medical records. Screening: Per USPSTF and CDC recommendations, given the prevalence of disease in our region, it is our hospital?s policy to screen for HIV and viral Hepatitis for all patients aged 18 and over and those with ongoing risk factors. Jose Inquiry Pt receiving controlled substance: No Jose was queried for this patient: No Vital Signs: 10/09/24 19:50 Temperature 98 F Temperature Source Temporal Artery Scan Pulse Rate [Right] 79 Respiratory Rate 16 Blood Pressure [Right Arm] 158/77 H Blood Pressure Mean [Right Arm] 104 Blood Pressure Source [Right Arm] Automatic Cuff Blood Pressure Position [Right Arm] Sitting 02 Sat by Pulse Oximetry 100 Oxygen Delivery Method Room Air Orders (Tests/Meds): ED MEDICATIONS Generic Name Dose Route Start Last Admin Trade Name Freq PRN Reason Stop Dose Admin Cefazolin Sodium 1 gm/ Sodium 50 mls @ 100 mls/hr 10/09/24 20:28 10/09/24 20:50 Chloride IV 10/09/24 20:57 100 mls/hr ONCE ONE Administration Discontinued Medications Generic Name Dose Route Start Last Admin Trade Name Freq PRN Reason Stop Dose Admin Tetanus/Reduced Diphtheria/Acell Pertussis 0.5 ml 10/09/24 20:29 10/09/24 20:49 Tet/Diphth/Pert-Adult 0.5ml Syringe IM 10/09/24 20:30 0.5 ml .ONCE ONE Administration ORDERS Category Date Time Status XR hand LT min 3V Stat Exams 10/09/24 20:27 Taken Medical Decision Narrative: 84-year-old male presents emergency department with a obvious injury to his left hand third digit, differential diagnose include but limited to degloving injury, tuft fracture, open fracture, tendon laceration among others. I discussed patient case with attending physician Dr. Argueta. Obtain x-ray of the hand for further evaluation/characterization, will update tetanus prophylaxis, and give 1 g IV Ancef. I discussed this patient's case with Dr. Manish Aguilar orthopedic surgeon at [facility] at approximately 8:50 PM, he is agreement with current treatment plan/transfer plan, patient be transferred [facility] ED to ED transfer, will give 5 mg p.o. [place] prior to transfer after IV administration of Ancef and Tdap prophylaxis, for degloving injury with possible open fracture. Patient voiced understanding of the [facility] plan/transfer plan. Patient will most likely be to go POV, as bleeding is controlled and there were no other apparent complications. Critical Care Critical Care Time Critical Care Time: No
--- NOTE | 2024-10-09 20:35 | PC.NURSE ---
Spoke with transfer center, awaiting a call back at this time.
[2024-10-09] MEDS: TET/DIPHTH/PERT-ADULT 0.5ML SYRINGE 0.5 ML IM (20:49)
[2024-10-09] MEDS: CEFAZOLIN SODIUM 1 GM in 0.9 % SODIUM CHLORIDE 50 ML IV (20:50)
[2024-10-09] MEDS: HYDROCODONE/APAP 5/325 MG TABLET 1 TAB PO (21:29)
[2024-10-09 21:32] VITALS: BP 118/70; PULSE 70; RESP 14; TEMP 36.6; O2SAT 98
--- NOTE | 2024-10-09 21:40 | PC.NURSE ---
report called to [facility] ED RN
== END 2024-10-09 21:32 | disposition other institution (70) ==
PROVIDERS: Emergency Provider Emergency Medicine; PCP Family Medicine
DX: S62.633B Displaced fracture of distal phalanx of left middle finger, initial encounter for open fracture (principal); W31.2XXA Contact with powered woodworking and forming machines, initial encounter; Z23 Encounter for immunization
CPT/HCPCS: 73130; 90471; 90715; 96365; 99285; J0690